=== PATIENT | female | born 1945 | race Caucasian/White ===

== ENCOUNTER 2020-02-13 19:07 | Emergency (ER) | payer OTHER ==
[2020-02-13] MEDS ORDERED: MORPHINE 4 MG/ML SYR ONE (20:17)
[2020-02-13] MEDS ORDERED: ONDANSETRON 4 MG/2 ML VIAL ONE (20:17)
[2020-02-13 20:22] LABS: Absolute Lymphocytes (CBC) 2.2 K/uL (0.7-4.9); Basophils % 0.5 % (0-1.3); Hematocrit 42.6 % (36.0-45.0); Lymphocytes % 31.3 % (15.3-44.8); MPV 9.5 fL (7.6-11.3); RBC Red Blood Cell Count 4.61 M/uL (3.86-4.86)
[2020-02-13 20:37] LABS: Albumin 3.8 g/dL (3.4-5.0); Bilirubin Direct 0.2 mg/dL (0-0.2); Bilirubin Total 0.7 mg/dL (0.2-1.0); Protein, Total 7.2 g/dL (6.4-8.2)
--- NOTE | 2020-02-13 22:08 | RAD REPORT ---
EXAM DESCRIPTION: RAD - Abdomen 1 View (KUB) - 02/13/2020 9:10 pm CLINICAL HISTORY: Abdomen pain. FINDINGS: The bowel gas pattern is unremarkable. There appears to be a large amount of stool presen t throughout the colon Postsurgical changes involve the lumbar spine.
--- NOTE | 2020-02-14 01:00 | ER ---
Nurse's Notes [facility] Name: Kenisha Tiwari Age: 74 yrs Sex: Female : 1945 Arrival Date: 02/13/2020 Time: 19:09 Bed 4 Private MD: Diagnosis: Abdominal tenderness, unspecified site;Low back pain Presentation: 02/12 19:21 Chief complaint: Patient states: left sided back pain, denies injury or trauma, also sg reprots last BM four days ago and is now having abd pain and nausea. Coronavirus screen: Proceed with normal triage. Ebola Screen: Patient negative for fever greater than or equal to 101.5 degrees Fahrenheit, and additional compatible Ebola Virus Disease symptoms Patient denies exposure to infectious person. Patient denies travel to an Ebola-affected area in the 21 days before illness onset. No symptoms or risks identified at this time. Initial Sepsis Screen: Does the patient meet any 2 criteria? No. Patient's initial sepsis screen is negative. Does the patient have a suspected source of infection? Yes: Acute abdominal pain. Risk Assessment: Do you want to hurt yourself or someone else? Patient reports no desire to harm self or others. Onset of symptoms was February 13, 2020. Care prior to arrival: None. Transition of care: patient was not received from another setting of care. 19:21 Method Of Arrival: Wheelchair 19:21 Acuity: NINI 3 sg Historical: - Allergies: 19:23 No Known Allergies; sg - PMHx: 19:23 Hypertension; sg - Immunization history:: Adult Immunizations up to date. - Social history:: Smoking status: Patient denies any tobacco usage or history of. Screenin:33 Abuse screen: Denies threats or abuse. Denies injuries from another. Nutritional ao screening: No deficits noted. Tuberculosis screening: No symptoms or risk factors identified. Fall Risk None identified. Assessment: 19:31 General: Appears in no apparent distress. comfortable, well groomed, well developed, ao well nourished, Behavior is calm, cooperative, appropriate for age. Pain: Complains of pain in back and abdomen Pain currently is 6 out of 10 on a pain scale. Neuro: Level of Consciousness is awake, alert, obeys commands, Oriented to person, place, time, situation, Appropriate for age Moves all extremities. Full function Speech is normal, Facial symmetry appears normal. Cardiovascular: Capillary refill < 3 seconds Patient's skin is warm and dry. Respiratory: Airway is patent Respiratory effort is even, unlabored, Respiratory pattern is regular, symmetrical. GI: Abdomen is non-distended. : No signs and/or symptoms were reported regarding the genitourinary system. EENT: No signs and/or symptoms were reported regarding the EENT system. Derm: Skin is intact, is healthy with good turgor, Skin is dry, Skin temperature is warm. Musculoskeletal: Range of motion: intact in all extremities. 21:23 Reassessment: Patient appears in no apparent distress at this time. CT to be done after ao proper IV is done. 22:46 Reassessment: Patient and/or family updated on plan of care and expected duration. Pain ea level reassessed. Patient is alert, oriented x 3, equal unlabored respirations, skin warm/dry/pink. 02/13 00:08 Reassessment: Patient appears in no apparent distress at this time. Patient and/or ea family updated on plan of care and expected duration. Pain level reassessed. 01:20 Reassessment: Patient requested a pain pill. Dr Steinberg notified. Received a verbal ao order from Dr Steinberg to give tramadol 50mg PO. See MAR for Documentation. 01:36 Reassessment: DC instructions given to patient. Patient agree with POC and to follow ao up. Provided with 3 prescription. Reassessment: Patient waiting for family member to get her home. Vital Signs: 02/12 19:23 BP 193 / 98; Pulse 67; Resp 14; Temp 98.5; Pulse Ox 97% ; Weight 81.65 kg; Height 5 ft. ao 3 in. (160.02 cm); 21:10 BP 162 / 74; Pulse 66; Resp 14; Pulse Ox 97% ; ao 22:47 BP 146 / 75; Pulse 60; Resp 18; Pulse Ox 98% on R/A; ea 02/13 00:08 BP 137 / 79; Pulse 70; Resp 18; Pulse Ox 94% on R/A; ea 01:37 BP 128 / 80; Pulse 66; Resp 18; Pulse Ox 94% on R/A; ao 02/12 19:23 Body Mass Index 31.89 (81.65 kg, 160.02 cm) ao ED Course: 02/12 19:09 Patient arrived in ED. ds1 19:17 Cody Steinberg MD is Attending Physician. tw4 19:22 Triage completed. sg 19:22 Arm band placed on. sg 19:31 Cedric Marcial, RN is Primary Nurse. ao 19:33 Patient has correct armband on for positive identification. cmm inspector on. Pulse ao ox on. NIBP on. 19:43 Missed attempt(s): 20 gauge in right wrist. Bleeding controlled, band aid applied, sg catheter tip intact. 19:51 Inserted saline lock: 22 gauge in right hand, using aseptic technique. ao 20:06 Abdomen 1 View (KUB) XRAY In Process Unspecified. EDMS 21:05 Missed attempt(s): 22 gauge in left antecubital area. Bleeding controlled, band aid ea applied, catheter tip intact. 21:10 Missed attempt(s): 24 gauge in right antecubital area. Bleeding controlled, band aid ea applied, catheter tip intact. 22:00 Inserted MidLine PowerGlide Pro, 20 G 10 CM to the LUE. sg 22:23 CT Abd/Pelvis - IV Contrast Only In Process Unspecified. EDMS 02/13 00:26 Straight cath inserted, using sterile technique, 14 Fr. Specimen obtained. ea 01:35 No provider procedures requiring assistance completed. IV discontinued, intact, ao bleeding controlled, No redness/swelling at site. Pressure dressing applied. Administered Medications: 02/12 20:12 Drug: Zofran (Ondansetron) 4 mg Route: IVP; Site: left hand; ea 21:00 Follow up: Response: No adverse reaction ea 20:13 Drug: morphine 4 mg Route: IVP; Site: left hand; ea 21:00 Follow up: Response: No adverse reaction ea 02/13 01:10 Drug: traMADol 50 mg {Note: Rass 0.} Route: PO; ao 01:38 Follow up: Response: No adverse reaction; RASS: Alert and Calm (0) ao Outcome: 00:59 Discharge ordered by . tw4 01:35 Discharged to home via wheelchair. ao 01:35 Condition: stable 01:35 Discharge instructions given to patient, Instructed on discharge instructions, follow up and referral plans. Demonstrated understanding of instructions, follow-up care, medications, Prescriptions given X 3. 02:06 Patient left the ED. ea Addendum: 02/19/2020 07:40 Addendum: Culture Results: Positive urine culture. No further action required. Bacteria s g sensitive to prescribed antibiotic. Signatures: Dispatcher [employer] Sim Koroma, RN Kathy Carson ds1 Cedric Marcial RN Julieta Stevenson RN Cody Jean Baptiste ea, MD MD tw4
--- NOTE | 2020-02-14 01:00 | EDPHYS ---
Physician Documentation [facility] Name: Kenisha Tiwari Age: 74 yrs Sex: Female : 1945 Arrival Date: 02/13/2020 Time: 19:09 Bed 4 Private MD: ED Physician Cody Steinberg HPI: 02/12 20:54 This 74 yrs old Female presents to ER via Wheelchair with complaints of Back tw4 Pain, Abdominal Pain. 20:54 The patient presents with pain that is acute, with no known mechanism of injury. The tw4 symptoms are located in the low back. Onset: The symptoms/episode began/occurred 4 day(s) ago. The pain does not radiate. Associated signs and symptoms: The patient has no apparent associated signs or symptoms. The problem was sustained without known cause. Modifying factors: The patient symptoms are alleviated by nothing, the patient symptoms are aggravated by nothing. Historical: - Allergies: 19:23 No Known Allergies; sg - PMHx: 19:23 Hypertension; sg - Immunization history:: Adult Immunizations up to date. - Social history:: Smoking status: Patient denies any tobacco usage or history of. ROS: 20:54 Constitutional: Negative for fever, chills, and weight loss, Eyes: Negative for injury, tw4 pain, redness, and discharge, Cardiovascular: Negative for chest pain, palpitations, and edema, Respiratory: Negative for shortness of breath, cough, wheezing, and pleuritic chest pain. 20:54 MS/Extremity: Negative for injury and deformity, Skin: Negative for injury, rash, and discoloration, Neuro: Negative for headache, weakness, numbness, tingling, and seizure. 20:54 Abdomen/GI: Positive for abdominal pain, Negative for nausea and vomiting, nausea, vomiting, and diarrhea, nausea, constipation, abdominal cramps, abdominal distension, black/tarry stool, rectal pain, rectal bleeding, bowel incontinence. 20:54 Back: Positive for pain at rest, Negative for injury or acute deformity, radiated pain, acute changes. Exam: 20:54 Constitutional: This is a well developed, well nourished patient who is awake, alert, tw4 and in no acute distress. Head/Face: Normocephalic, atraumatic. Chest/axilla: Normal chest wall appearance and motion. Nontender with no deformity. No lesions are appreciated. Cardiovascular: Regular rate and rhythm with a normal S1 and S2. No gallops, murmurs, or rubs. Normal PMI, no JVD. No pulse deficits. Respiratory: Lungs have equal breath sounds bilaterally, clear to auscultation and percussion. No rales, rhonchi or wheezes noted. No increased work of breathing, no retractions or nasal flaring. 20:54 Skin: Warm, dry with normal turgor. Normal color with no rashes, no lesions, and no evidence of cellulitis. MS/ Extremity: Pulses equal, no cyanosis. Neurovascular intact. Full, normal range of motion. Neuro: Awake and alert, GCS 15, oriented to person, place, time, and situation. Cranial nerves II-XII grossly intact. Motor strength 5/5 in all extremities. Sensory grossly intact. Cerebellar exam normal. Normal gait. 20:54 Abdomen/GI: Inspection: abdomen appears normal, Bowel sounds: diminished, Palpation: moderate abdominal tenderness, in all quadrants. Vital Signs: 19:23 BP 193 / 98; Pulse 67; Resp 14; Temp 98.5; Pulse Ox 97% ; Weight 81.65 kg; Height 5 ft. ao 3 in. (160.02 cm); 21:10 BP 162 / 74; Pulse 66; Resp 14; Pulse Ox 97% ; ao 22:47 BP 146 / 75; Pulse 60; Resp 18; Pulse Ox 98% on R/A; ea 02/13 00:08 BP 137 / 79; Pulse 70; Resp 18; Pulse Ox 94% on R/A; ea 01:37 BP 128 / 80; Pulse 66; Resp 18; Pulse Ox 94% on R/A; ao 02/12 19:23 Body Mass Index 31.89 (81.65 kg, 160.02 cm) ao MDM: 02/12 19:17 Patient medically screened. tw4 02/13 00:56 Data reviewed: vital signs, nurses notes. Data interpreted: Pulse oximetry: tw4 Interpretation: normal. Counseling: I had a detailed discussion with the patient and/or guardian regarding: the historical points, exam findings, and any diagnostic results supporting the discharge/admit diagnosis, lab results, radiology results. Medication response: morphine relieved the patient's pain. Symptoms have resolved. Response to treatment: and as a result, I will discharge patient. Special discussion: Based on the patient's Hx, exam, and Dx evaluation, there is no indication for emergent surgery or inpatient Tx. It is understood by the patient/guardian that if the Sx's persist or worsen they need to return immediately for re-evaluation. I discussed with the patient/guardian in detail that at this point there is no indication for admission to the hospital. It is understood, however, that if the symptoms persist or worsen the patient needs to return immediately for re-evaluation. 02/12 19:22 Order name: Basic Metabolic Panel; Complete Time: 20:57 [facility] 02/12 20:59 Interpretation: Normal except: CL 108; GFR 83. 02/12 19:22 Order name: CBC with Diff; Complete Time: 20:57 [facility] 02/12 20:59 Interpretation: Within normal limits. 02/12 19:22 Order name: Hepatic Function; Complete Time: 20:57 [facility] 02/12 21:01 Interpretation: Within normal limits. 02/12 19:22 Order name: Lipase; Complete Time: 20:57 [facility] 02/12 21:01 Interpretation: Within normal limits: LIP 147. 02/13 00:27 Order name: Urine Microscopic Only; Complete Time: 01:30 ea 02/13 01:30 Interpretation: UBACT 20-50. 02/13 01:07 Order name: Urine Dipstick--Ancillary (enter results) tt3 02/12 19:22 Order name: IV Saline Lock; Complete Time: 19:52 [facility] 02/12 19:22 Order name: Abdomen 1 View (KUB) XRAY; Complete Time: 23:54 [facility] 02/12 20:03 Order name: CT Abd/Pelvis - IV Contrast Only [facility] 02/12 22:47 Order name: EKG; Complete Time: 22:48 ea 02/13 01:17 Order name: Urine Culture [facility] 02/12 19:22 Order name: Labs collected and sent; Complete Time: 19:52 [facility] 02/12 19:22 Order name: Urine Dipstick-Ancillary (obtain specimen); Complete Time: 00:25 [facility] 02/12 22:48 Order name: EKG - Nurse/Tech; Complete Time: 00:01 ea EC:20 Rate is 66 beats/min. Rhythm is regular. QRS [place] is Normal. ME interval is normal. QT tw4 interval is normal. No Q waves. T waves are Normal. No ST changes noted. Clinical impression: Normal ECG. Interpreted by me. Reviewed by me. Administered Medications: 02/12 20:12 Drug: Zofran (Ondansetron) 4 mg Route: IVP; Site: left hand; ea 21:00 Follow up: Response: No adverse reaction ea 20:13 Drug: morphine 4 mg Route: IVP; Site: left hand; ea 21:00 Follow up: Response: No adverse reaction ea 02/13 01:10 Drug: traMADol 50 mg {Note: Rass 0.} Route: PO; ao 01:38 Follow up: Response: No adverse reaction; RASS: Alert and Calm (0) ao Disposition: 02/14/20 00:59 Discharged to Home. Impression: Abdominal tenderness, unspecified site, Low back pain. - Condition is Stable. - Discharge Instructions: Abdominal Pain, Adult, Back Pain, Adult, Pain Without a Known Cause, Urinary Tract Infection, Adult. - Prescriptions for Cyclobenzaprine 10 mg Oral Tablet - take 1 tablet by ORAL route every 8 hours As needed; 30 tablet. Tramadol 50 mg Oral Tablet - take 1 tablet by ORAL route every 8 hours as needed; 12 tablet. Macrobid 100 mg Oral Capsule - take 1 capsule by ORAL route every 12 hours for 7 days; 14 capsule. - Medication Reconciliation Form, Thank You Letter, Antibiotic Education, Prescription Opioid Use form. - Follow up: Private Physician; When: Upon discharge from the Emergency Department; Reason: Recheck today's complaints, Continuance of care, Re-evaluation by your physician. - Problem is new. - Symptoms have improved. Signatures: Dispatcher [employer] EDMS Sim Chun RN RN sg Ortiz, Alex RN Julieta Stevenson RN Cody Jean Baptiste ea, MD MD tw4 Corrections: (The following items were deleted from the chart) 02:06 00:59 02/14/2020 00:59 Discharged to Home. Impression: Abdominal tenderness, ea unspecified site; Low back pain. Condition is Stable. Forms are Medication Reconciliation Form, Thank You Letter, Antibiotic Education, Prescription Opioid Use. Follow up: Private Physician; When: Upon discharge from the Emergency Department; Reason: Recheck today's complaints, Continuance of care, Re-evaluation by your physician. Problem is new. Symptoms have improved. tw4
[2020-02-14 01:16] LABS: Urine Blood NEGATIVE (NEG); Urine Glucose NEGATIVE (NEG); Urine Protein NEGATIVE (NEG)
[2020-02-14 01:16] LABS: Urine Bacteria 20-50 /HPF (<20); Urine Culture Reflex Order REFLEXED; Urine RBC NONE SEEN /HPF (NONE SEEN)
[2020-02-14] MEDS ORDERED: TRAMADOL HCL 50 MG TAB ONE (01:28)
--- OUTSIDE RECORDS SUMMARY | 2020-02-14 02:17 | XMS REPORT | Continuity of Care Document ---
:1945 Author Organization [facility] t Address [address] [place] [address] Care Team Providers Name Role Phone Asked, Pcp Primary Care Physician Unavailable Chris Mckeon MD Attending Clinician Problems Condition Condition Condition Status Onset Resolution Last Treating Co mments Source Name Details Category Date Date Treatment Clinician Date Acute Acute Disease Active [facility] bronchitis bronchitis 09-10 Assessmen Methodi 00:00: t & Plan: st 00 History and clinical findings consisten t with acute bronchiti s. Discussed possible etiologie s however given chronicit y antibioti c therapy preferred .Azithrom ycin 250 mg by mouth in a Z-Jay prescribe dRescue inhaler prescribe [place] precautio ns givenFoll ow-up in clinic in 5 to 7 days if symptoms do not improve Viral Viral Disease Active [place] conjunctiv conjunctiv 2 Dc thodi itis of itis of 00:00: st left eye left eye 00 Bilateral Bilateral Disease Active Last Rosa Isela ston impacted impacted 09-10 Assessmen Met hodi cerumen cerumen 00:00: t & Plan: st 00 Ear cerumen removal by ear irrigatio n b/l. Resolved. 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-12 Meth danyelle loss loss 00:00: st 00 Need for Need for Disease Active [place] pneumococc pneumococc 08-20 Me thodi al al 00:00: st vaccinatio vaccinatio 00 n n Abnormal Abnormal Disease Active [place] liver liver 08-20 Methodi function function 00:00: st test test 00 Acquired Acquired Disease Active [place] hypothyroi hypothyroi -12 Me thodi dism dism 00:00: st 00 Osteopenia Osteopenia Disease Active 2015-08 Overview : [place] determined determined 10-05 -2.1 [facility] by x-ray by x-ray 00:00: T-score 00 of Femoral neck Breast Breast Disease Active 2015-08 [place] cancer cancer 10-05 Methodi screening screening 00:00: st 00 GERD GERD Disease Active 2015-08 Last [place] (gastroeso (gastroeso 10-05 Assessmen Methodi phageal phageal 00:00: t & Plan: st reflux reflux 00 History disease) disease) and clinical findings suggestiv e of persisten t GERD symptoms. Added antacid to PPI regimen.C yarelinseled her on dietary intervent jordenwirhoda review previous endoscopy records once available Follow-up in office if condition does not improve and possible referral to GI for further evaluatio n Hyperlipid Hyperlipid Disease Active 2015-08 H marie castrejon, 10-05 Methodi mixed mixed 00:00: st 00 Obesity Obesity Disease Active 2015-08 [place] 10-05 Methodi 00:00: st 00 Allergies, Adverse Reactions, Alerts This patient has no known allergies or adverse reactions. Family History Family Member Diagnosis Comments Start Date Stop Date Source Natural father Stroke [facility] Natural mother Hypertension [facility] Natural sister Cancer [facility] Social History Social Habit Start Date Stop Date Quantity Comments Source Sex Assigned [facility] ethodist Alcohol intake 2016-09-10 2016-09-10 [facility]00 non-drinker of alcohol (finding) Smoking Status Start Date Stop Date Source [facility] Ordered Filled Start Stop Current Ordering Indication Dosage Frequency Signature Comments Components Source Medication Medication Date Date Medication? Clinician (SIG) Name Name esomeprazol Yes 40mg QD Take 40 mg [place] e (NexIUM) 09-10 by mouth Metho di 40 MG 14:02: daily st capsule 55 before breakfast. cholecalcif Yes 1000U QD Take 1,000 [place] pranav, 09-10 Units by Methodi vitamin D3, 14:02: mouth st (VITAMIN 55 daily. D3) 1,000 unit capsule CALCIUM 2017-0 Yes Take by [place] CARBONATE 2-02 mouth. Methodi (CALCIUM 14:02: st 600 ORAL) 55 aspirin Yes 81mg QD Take 81 mg [place] (ECOTRIN) 2-02 by mouth Method i 81 MG 14:02: daily. st enteric 55 coated tablet alum-mag 2015-08 Yes Gastroesoph 30mL Q.25D Take 30 mL Lim hydroxide-s 2-27 ageal by mouth 4 M ethodi imeth 00:00: reflux (four) st (MAALOX) 00 disease, times a 200-200-20 esophagitis day before mg/5 mL presence meals and suspension not nightly. specified ibuprofen 2015-08 Yes TK 1 T PO Rosa Isela fagan (ADVIL,MOTR 1-23 Q 8 H PRN Met hodi IN) 600 MG 00:00: st tablet 00 Immunizations Ordered Immunization Filled Immunization Date Status Commen ts Source Name Name Pneumococcal 2016-08-20 Completed Lim Conjugate 13-Valent 00:00:00 Metho dist FLUZONE HIGH-DOSE PF 2016-07-21 Completed Mitzy ton 00:00:00 [facility] Tdap 2010-08-23 Completed Lim 00:00:00 [facility] Procedures This patient has no known procedures. Plan of Care Planned Activity Planned Date Details Comments Source Future Scheduled 2025-03-09 COLONOSCOPY SCREENING Ho aidan [facility] Test 00:00:00 [code = COLONOSCOPY SCREENING] Future Scheduled 2020-03-09 INFLUENZA VACCINE Jose n [facility] Test 00:00:00 [code = INFLUENZA VACCINE] Future Scheduled 2018-09-02 DXA SCAN [code = DXA Rosa Isela fagan [facility] Test 00:00:00 SCAN] Future Scheduled 2017-08-20 65+ PNEUMOCOCCAL [place] [facility] Test 00:00:00 VACCINE (2 of 2 - PPSV23) [code = 65+ PNEUMOCOCCAL VACCINE (2 of 2 - PPSV23)] Future Scheduled 2017-04-19 BREAST CANCER Lim Me thodist Test 00:00:00 SCREENING [code = BREAST CANCER SCREENING] Future Scheduled 1994 SHINGLES VACCINES (#1) H cherelle [facility] Test 00:00:00 [code = SHINGLES VACCINES (#1)] Encounters Start End Encounter Admission Attending Care Care Encounter Source Date/Time Date/Time Type Type Clinicians Facility Department ID 2019-12-13 2019-12-13 TelemedicMELISSA Hernandez [id number] 12:59:41 13:14:41 ne Visit Mart Luciano [id number] Edward [facility] [id number] Professio [phone] [address] 2019-12-13 2019-12-13 [facility] [id number] 00:00:00 00:00:00 [facility] [id number] [place] [id number] Professio [phone] [address] 2019-11-13 2019-11-13 [facility] [id number] 00:00:00 00:00:00 [facility] [id number] [facility] [place] [id number] Professio [phone] [address] 2019-11-10 2019-11-10 [facility] [id number] 07:22:02 08:02:02 ne Visit Mart Luciano [id number] Edward [place] [id number] Professio [phone] [address] 2019-11-01 2019-11-01 [facility] [id number] 08:13:49 08:28:49 ne Visit Mart Wells [id number] [place] [id number] Professio [phone] [address] 2019-10-30 2019-10-30 [facility] [id number] 00:00:00 00:00:00 [facility] [id number] [place] [id number] Professio [id number] [address] 2019-10-25 2019-10-25 [facility] [id number] 00:00:00 00:00:00 [facility] [id number] [place] [id number] Professio [phone] [address] 2019-09-27 2019-09-27 Office [facility] [id number] 09:21:11 10:00:34 Visit [facility] [id number] Edward [place] [id number] Professio [phone] nal [address] 2019-09-27 2019-09-27 Refill [facility] [id number] 00:00:00 00:00:00 [facility] [id number] [facility] [place] [id number] Professio [phone] [place] [address] [address] Results This patient has no known results.
--- OUTSIDE RECORDS SUMMARY | 2020-02-14 02:17 | XMS REPORT | Summary of Care ---
:1945 Author Organization [facility] Address [address] [place] [address] Care Team Providers Name Role Phone Mart Mckeon MD Primary Care Provider [phone] Reason for Visit Reason Comments Assessment Encounter Details Date Type Department Care Team Description 12/13/2019 Telephone [facility] Family Medicine Mart Acharya MD Assessment - [address] [address] [place] [address] [phone] Allergies No Known Allergiesdocumented as of this encounter (statuses as of 12/13/2019) Medications Medication Sig Dispensed Refills Start Date End Date Status atorvastatin 40 mg Take 40 mg by 0 Active tablet mouth at bedtime. losartan 100 mg tablet Take 100 mg by 0 Active mouth daily. pantoprazole 40 mg EC Take 40 mg by 0 Active tablet mouth daily. alendronate 70 mg Take 1 tablet by 4 tablet 12 09/27/2019 Active tabletIndications: mouth weekly. Age-related osteoporosis without current pathological fracture famotidine 20 mg Take 1 tablet by 30 tablet 12 09/27/2019 Active tabletIndications: mouth at Gastroesophageal reflux bedtime. disease with esophagitis LEVOTHYROXINE 112 mcg TAKE 1 TABLET BY 270 tablet 1 10/31/2019 Active tabletIndications: MOUTH EVERY DAY Acquired hypothyroidism IN THE MORNING traMADol 50 mg Take 1 tablet by 50 tablet 0 11/10/2019 Active tabletIndications: Acute mouth every 6 midline low back pain (six) hours as without sciatica needed (back pain). methylPREDNISolone Take 21 tablets 21 Each 0 11/13/2019 Active (MEDROL, CELIA,) 4 mg by mouth tabletsIndications: SEE-INSTRUCTIONS Acute midline low back . follow package pain without sciatica directions documented as of this encounter (statuses as of 12/13/2019) Active Problems Not on filedocumented as of this encounter (statuses as of 12/13/2019) Social History Tobacco Use Types Packs/Day Years Used Date Never Smoker Smokeless Tobacco: Never Used Alcohol Use Drinks/Week oz/Week Comments Never Alcohol Habits Answer Date Recorded How often do you have a drink containing alcohol? Never 09/27/2019 How many drinks containing alcohol do you have on a typical Not asked day when you are drinking? How often do you have six or more drinks on one occasion? No t asked Sex Assigned at Date Recorded Not on file Job Start Date Occupation Industry Not on file Not on file Not on file Travel History Travel Start Travel End No recent travel history available. documented as of this encounter Last Filed Vital Signs Not on filedocumented in this encounter Plan of Treatment Date Type Specialty Care Team Description 12/13/2019 Telemedicine Visit Family Medicine Bryan Mckeon MD [address] [place] [address] [phone] Health Maintenance Due Date Last Done Comments HEPATITIS C (HCV) SCREEN 1945 DTaP,Tdap,and Td Vaccines (1 - Tdap) 11/27/1955 Breast Cancer Screening (MAMMOGRAM) 1984 COLONOSCOPY 1994 Zoster Recombinant Vaccine (SHINGRIX) (1 of 2) 1994 Medicare Wellness Visit 2009 Osteoporosis Screening 2009 PNEUMOCOCCAL VACCINES 65+ (1 of 2 - PCV13) 2009 INFLUENZA VACCINE (Season Ended) 2020 documented as of this encounter Results Not on filedocumented in this encounter Insurance Payer Benefit Plan / Subscriber ID Effective Phone Address T ype Group Dates MEDICARE MEDICARE PART A xxxxxxxxxxx 2009-Pres [phone] [address] Medicare & B ent [id number] [place] [address] [facility] [id number] 2019-Pre Indemnity AND LIFE BENEFITS sent documented as of this encounter
--- OUTSIDE RECORDS SUMMARY | 2020-02-14 02:17 | XMS REPORT | Clinical Summary ---
:1945 Author Organization [facility] Address [address] [place] [address] Care Team Providers Name Role Phone Asked, Pcp Primary Care Provider Unavailable Allergies No Known Allergies Medications Medication Sig Dispensed Refills Start Date End Date Status ibuprofen (ADVIL,MOTRIN) TK 1 T PO Q 8 H 0 6 Active 600 MG tablet PRN esomeprazole (NexIUM) 40 Take 40 mg by 0 Active MG capsule mouth daily before breakfast. cholecalciferol, vitamin Take 1,000 0 Active D3, (VITAMIN D3) 1,000 Units by mouth unit capsule daily. CALCIUM CARBONATE Take by mouth. 0 Active (CALCIUM 600 ORAL) aspirin (ECOTRIN) 81 MG Take 81 mg by 0 Active enteric coated tablet mouth daily. alum-mag hydroxide-simeth Take 30 mL by 148 mL 2 08/04/2016 Active (MAALOX) 200-200-20 mg/5 mouth 4 (four) mL suspensionIndications: times a day Gastroesophageal reflux before meals disease, esophagitis and nightly. presence not specified Active Problems Problem Noted Date Acute bronchitis 09/10/2016 Last Assessment & Plan: History and clinical findings consistent with acute bronchitis. Discussed possible etiologies however given chronicity antibiotic therapy preferred. Azithromycin 250 mg by mouth in a Z-Jay prescribed Rescue inhaler prescribed ER precautions given Follow-up in clinic in 5 to 7 days if sy mptoms do not improve Viral conjunctivitis of left eye 09/10/2016 Bilateral impacted cerumen 09/10/2016 Last Assessment & Plan: Ear cerumen removal by ear irrigation b/ l. Resolved. Postmenopausal bone loss 08/20/2016 Need for pneumococcal vaccination 08/20/2016 Abnormal liver function test 08/20/2016 Acquired hypothyroidism 08/20/2016 Osteopenia determined by x-ray 08/04/2016 Overview: -2.1 T-score of Femoral neck Breast cancer screening 08/04/2016 GERD (gastroesophageal reflux disease) 08/04/2016 Last Assessment & Plan: History and clinical findings suggestive of persistent GERD symptoms. Added antacid to PPI regimen. Counseled her on dietary intervention will review previous endoscopy records o nce available Follow-up in office if condition does no t improve and possible referral to GI for further evaluation Hyperlipidemia, mixed 08/04/2016 Obesity 08/04/2016 Immunizations Name Administration Dates Next Due FLUZONE HIGH-DOSE PF 07/21/2016 Pneumococcal Conjugate 13-Valent 08/20/2016 Tdap 08/23/2010 Family History Medical History Relation Name Comments Stroke Father Hypertension Mother Cancer Sister Cancer Sister Relation Name Status Comments Father Mother Sister BREAST Sister BREAST Social History Tobacco Use Types Packs/Day Years Used Date Never Smoker Smokeless Tobacco: Never Used Alcohol Use Drinks/Week oz/Week Comments No Sex Assigned at Date Recorded Not on file Job Start Date Occupation Industry Not on file Not on file Not on file Travel History Travel Start Travel End No recent travel history available. Last Filed Vital Signs Not on file Plan of Treatment Health Maintenance Due Date Last Done Comments SHINGLES VACCINES (#1) 1994 BREAST CANCER SCREENING 04/19/2017 04/19/2015 65+ PNEUMOCOCCAL VACCINE (2 of 2 - 08/20/2017 08/20/2016 PPSV23) DXA SCAN 09/02/2018 09/02/2016, 09/02/2016 INFLUENZA VACCINE 03/09/2020 06/14/2017, 06/14/2017, 07/21/2016 COLONOSCOPY SCREENING 03/09/2025 03/09/2015 Results Not on fileafter 02/12/2019 Insurance Payer Benefit Plan / Subscriber ID Effective Dates Phone Addre ss Type Group MEDICARE MEDICARE PART A xxxxxxxxxxx 2009-Present [facility] [place] [facility] B Advance Directives For more information, please contact: [phone] Type Date Recorded Patient Primary Care Nurse Practitioner Explanati on Advance Directives, 07/01/2016 8:34 AM Living Will and Medical Power of Core Sucker
--- OUTSIDE RECORDS SUMMARY | 2020-02-14 02:17 | XMS REPORT | Summary of Care ---
:1945 Author Organization [facility] Address [address] [place] [address] Care Team Providers Name Role Phone Mart Mckeon MD Primary Care Provider [phone] Reason for Visit Reason Comments Swallowing Problem Encounter Details Date Type Department Care Team Description 12/13/2019 Telemedicine Visit [facility] Mart Mckeon Gastrojodie sophageal reflux disease with esophagitis (Primary Dx); Pediatric and MD Chris Essential hypertension Adult Primary [address] [place], [place] , [address] [address] [place], [place] [phone] [address] Allergies No Known Allergiesdocumented as of this encounter (statuses as of 12/13/2019) Medications Medication Sig Dispensed Refills Start End Date Status Date atorvastatin 40 mg Take 40 mg by 0 Active tablet mouth at bedtime. losartan 100 mg tablet Take 100 mg by 0 Active mouth daily. pantoprazole 40 mg EC Take 40 mg by 0 Active tablet mouth daily. alendronate 70 mg Take 1 tablet 4 tablet 12 Active tabletIndications: by mouth 0 Age-related weekly. osteoporosis without current pathological fracture famotidine 20 mg Take 1 tablet 30 tablet 12 Active tabletIndications: by mouth at 0 Gastroesophageal bedtime. reflux disease with esophagitis LEVOTHYROXINE 112 mcg TAKE 1 TABLET 270 tablet 1 Active tabletIndications: BY MOUTH EVERY 0 Acquired DAY IN THE hypothyroidism MORNING traMADol 50 mg Take 1 tablet 50 tablet 0 A ctive tabletIndications: by mouth every 0 Acute midline low back 6 (six) hours pain without sciatica as needed (back pain). methylPREDNISolone Take 21 21 Each 0 12/13/19 D iscontinued (MEDROL, CELIA,) 4 mg tablets by 0 20 tabletsIndications: mouth Acute midline low back SEE-INSTRUCTIO pain without sciatica NS. follow package directions documented as of this encounter (statuses [...] Signs Not on filedocumented in this encounter Progress Notes Mart Mckeon MD - 12/13/2019 3:45 PM CDT TELEHEALTH NOTE Verbal consent obtained from Patient: Kenisha Tiwari for telehealth services provided below. Communication with patient was conducted via Telephone due to patient unable to obtain video call option. Location of Patient: Home Location of Provider: Office Date of Service: 12/13/2019 Chief Complaint: breathing and talking problems HPI: Patient continues to have issues swallowing and breathing; her GERD is a lot better with the addition of the famotidine. Past Medical History: Diagnosis Date Esophageal reflux Hyperlipidemia Hypertension Osteoporosis Thyroid disease No Known Allergies No family history on file. MEDICATIONS: Current Outpatient Medications Medication Sig Dispense Refill LEVOTHYROXINE 112 mcg tablet TAKE 1 TABLET BY MOUTH EVERY DAY IN THE MORNING 270 tablet 1 alendronate 70 mg tablet Take 1 tablet by mouth weekly. 4 tablet 12 famotidine 20 mg tablet Take 1 tablet by mouth at bedtime. 30 tablet 12 traMADol 50 mg tablet Take 1 tablet by mouth every 6 (six) hours as needed (back pain). 50 tablet 0 atorvastatin 40 mg tablet Take 40 mg by mouth at bedtime. losartan 100 mg tablet Take 100 mg by mouth daily. pantoprazole 40 mg EC tablet Take 40 mg by mouth daily. No current facility-administered medications for this visit. ROS Review of Systems TELEHEALTH EXAM Patient is alert and communicative on the phone with no distress noted. ASSESSMENT/ PLAN 1. Gastroesophageal reflux disease with esophagitis 2. Essential hypertension continue current regimen Follow up 1 month After visit summary (AVS ) documentation will be available through [facility] for this encounter. A total of 15 minutes was spent on the Telephone due to patient unable to obtain video call option with the patient. Mart Mckeon MD documented in this encounter Plan of Treatment Health Maintenance Due Date [...] Results Not on filedocumented in this encounter Visit Diagnoses Diagnosis Gastroesophageal reflux disease with eso phagitis - Primary Essential hypertension Unspecified essential hypertension documented in this encounter Insurance Payer Benefit Plan / Subscriber ID Effective Phone Address T ype Group Dates MEDICARE MEDICARE PART A xxxxxxxxxxx 2009-Pres [phone] [address] X Medicare & B ent [id number] [place] [address] [facility] [id number] 2019-Pre Indemnity AND LIFE BENEFITS sent documented as of this encounter
[2020-02-14 02:27] VITALS: TEMP 98.5
[2020-02-14 02:31] VITALS: O2SAT 94
[2020-02-14 02:32] VITALS: BP 128/80
--- NOTE | 2020-02-14 07:18 | EKG ---
Test Date: 2020-02-13 Test Time: 23:33:44 Aircraft Instrument Tester: OMAIRA MEASUREMENT RESULTS: Intervals: Rate: 66 PA: 162 QRSD: 76 QT: 406 QTc: 425 [place]: P: 63 PA: 162 QRS: -16 T: 54 INTERPRETIVE STATEMENTS: Normal sinus rhythm Normal ECG No previous ECG available for comparison Electronically Signed On 02-14-20 07:18:01 CDT by Mika Pepe
--- NOTE | 2020-02-14 08:27 | RAD REPORT ---
EXAM DESCRIPTION: CT - Abdomen Pelvis W Contrast - 02/14/2020 5:22 am CLINICAL HISTORY: ABD PAIN COMPARISON: None Available. TECHNIQUE: CT of the abdomen and pelvis performed following IV administration of iodinated contrast in the arterial and portal venous phase. FINDINGS: Lung Bases: Mild right basilar atelectasis. Bones: Levoconvex scoliosis of the lumbar spine. Posterior fixation at L3-S1. Degenerative facet arth ropathy and endplate spondylosis. Abdomen: Liver: The liver has normal size and decreased density. No intrahepatic biliary dilatation. Gallbladder: No calcified gallstones. Spleen, Pancreas, and Adrenal Glands: The spleen, pancreas, and adrenal glands are unremarkable. Kidneys: No hydronephrosis or obstructing calculus. Vasculature: Aortoiliac atherosclerosis. IVC is unremarkable. The portal vein is patent. The proxim al visceral and renal arteries are patent. Stomach: The stomach and duodenum have normal course. Other: No free intraperitoneal air. No free fluid or lymphadenopathy. Pelvis: Bladder: Urinary bladder is unremarkable. Bowel: No dilated loops of large or small bowel. Scattered diverticula of the colon. No pericolic i nflammatory change. Appendix: Normal appendix. Pelvis: Uterus is not enlarged. IMPRESSION: 1. No acute inflammatory or obstructive process identified. 2. Diverticulosis without evidence of acute diverticulitis. This exam was performed according to our departmental dose-optimization program, which includes autom ated exposure control, adjustment of the mA and/or kV according to patient size and/or use of iterati ve reconstruction technique. Electronically signed by: Maikol Sam 02/13/2020 10:36 PM CDT Due to temporary technical issues with the PACS/Fluency reporting system, reports are being signed by the in house radiologist without review as a courtesy to ensure prompt reporting. The interpreting r adiologist is fully responsible for the content of the report.
== END 2020-02-14 02:06 | disposition home or self-care (01) ==
LOC: ER 19:07
DX: R10.819 Abdominal tenderness, unspecified site (principal); I10 Essential (primary) hypertension
CPT/HCPCS: 93005; 87088; 85025; 87086; 80048; 36415; 80076; 87077; 87186; 83690; 74177; 74018; 51702; 96375; 96374; 99284; Q9967; J2405; 81003; 81015

== ENCOUNTER 2020-11-04 16:02 | Emergency (ER) | payer OTHER ==
--- OUTSIDE RECORDS SUMMARY | 2020-11-04 16:07 | XMS REPORT | Continuity of Care Document ---
:1945 Author Organization [facility] t Address [address] [place] [address] Care Team Providers Name Role Phone Chris Mckeon MD Attending Clinician Problems This patient has no known problems. Allergies, Adverse Reactions, Alerts This patient has no known allergies or adverse reactions. Medications This patient has no known medications. Procedures This patient has no known procedures. Encounters Start End Encounter Admission Attending Care Care Encounter Source Date/Time Date/Time Type Type Clinicians Facility Department ID 2020-11-01 2020-11-01 Office MELISSA Mckeon [id number] 13:16:19 14:07:37 Visit [facility] [id number] Chris Luciano [id number] Joshua [id number] nal [address] Results This patient has no known results.
[2020-11-04] MEDS ORDERED: NA CHLORIDE 0.9% 1,000 ML ONE (18:15)
[2020-11-04 19:01] LABS: Absolute Lymphocytes (CBC) 1.7 K/uL (0.7-4.9); Basophils % 0.6 % (0-1.3); Hematocrit 45.9 % (36.0-45.0); Lymphocytes % 27.3 % (15.3-44.8); MPV 10.5 fL (7.6-11.3); RBC Red Blood Cell Count 5.04 M/uL (3.86-4.86)
[2020-11-04 19:27] LABS: ALT/SGPT 25 U/L (12-78); Albumin 3.7 g/dL (3.4-5.0); Alkaline Phosphatase 86 U/L (45-117); BUN Blood Urea Nitrogen 11 mg/dL (7-18); Bicarbonate 26 mmol/L (21-32); Bilirubin Total 1.3 mg/dL (0.2-1.0); Glucose Level 78 mg/dL (74-106); Protein, Total 7.5 g/dL (6.4-8.2); Sodium Level 141 mmol/L (136-145)
[2020-11-04 19:28] LABS: AST/SGOT 19 U/L (15-37); Potassium 3.6 mmol/L (3.5-5.1)
--- NOTE | 2020-11-04 20:31 | EDPHYS ---
Physician Documentation [facility] Name: Kenisha Tiwari Age: 74 yrs Sex: Female : 1945 Arrival Date: 11/04/2020 Time: 16:05 Bed 7 Private MD: ED Physician Blanca Yu HPI: 11/04 17:52 This 74 yrs old Female presents to ER via Wheelchair with complaints of pm1 Difficulty Swallowing, Decreased Appetite, Weakness. 17:52 The patient presents with dysphagia, of both solids and liquids. Onset: The pm1 symptoms/episode began/occurred 1 year(s) ago. Severity of symptoms: in the emergency department the symptoms are actually worse. Modifying factors: Patient's oral intake status: limited fluid intake. Associated signs and symptoms: The patient has no apparent associated signs or symptoms. The patient has been recently seen by a physician: the patient's primary care provider, with similar presenting complaints, and was referred to a specialist, Referred to her GI for possible barium study. Had a barium swallow study test about 6-7 months ago. Patient had labs from PCP on Wednesday that were normal. He would like labs to check if the patient is dehydrated and treatment to get the patient to the next specialist if needed. Historical: - Allergies: 16:26 No Known Allergies; ca1 - PMHx: 16:26 Hypertension; Alzheimers; Dementia; Thyroid problem; ca1 - PSHx: 16:26 Back Surgeries; ca1 - Immunization history:: Flu vaccine is not up to date. - Social history:: Smoking status: Patient denies any tobacco usage or history of. ROS: 17:52 Constitutional: Negative for fever, chills, and weight loss. pm1 17:52 Neck: Negative for injury, pain, and swelling, Cardiovascular: Negative for chest pain, palpitations, and edema, Respiratory: Negative for shortness of breath, cough, wheezing, and pleuritic chest pain, Abdomen/GI: Negative for abdominal pain, nausea, vomiting, diarrhea, and constipation. 17:52 MS/Extremity: Negative for injury and deformity, Skin: Negative for injury, rash, and discoloration. 17:52 ENT: Positive for difficulty swallowing, Negative for sore throat, difficulty handling secretions, hoarseness. 17:52 Back: Positive for chronic low back pain. Normally take tylenol for the pain but has been having difficulty with swallowing pills so has not been taking any medications for pain. 17:52 Neuro: Positive for generalized weakness. Exam: 17:52 Constitutional: This is a well developed, well nourished patient who is awake, alert, pm1 and in no acute distress. Head/Face: Normocephalic, atraumatic. 17:52 Back: No spinal tenderness. No costovertebral tenderness. Full range of motion. Skin: Warm, dry with normal turgor. Normal color with no rashes, no lesions, and no evidence of cellulitis. MS/ Extremity: Pulses equal, no cyanosis. Neurovascular intact. Full, normal range of motion. 17:52 ENT: Posterior pharynx: is normal, airway is patent, no erythema, no exudate, no peritonsilar mass, no pooling of secretions, no swelling. 17:52 Neck: Exam negative for acute changes, swelling, ROM/movement: is normal, is supple. 17:52 Cardiovascular: Exam negative for acute changes, Rate: normal, Rhythm: regular, Pulses: no pulse deficits are appreciated. 17:52 Respiratory: Exam negative for acute changes, respiratory distress, shortness of breath, Breath sounds: are clear throughout. 17:52 Neuro: Orientation: appropriate for stated age, Mentation: is normal, appropriate for stated age, Motor: is normal, moves all fours. Vital Signs: 16:20 BP 129 / 88; Pulse 86; Resp 18 S; Temp 97.8(TE); Pulse Ox 98% on R/A; Weight 62.6 kg ca1 (R); Height 5 ft. 4 in. (162.56 cm) (R); Pain 5/10; 18:00 BP 141 / 95; Pulse 79; Resp 16 S; Pulse Ox 97% on R/A; aa5 20:29 BP 149 / 89; Pulse 67; Resp 18; Pulse Ox 96% on R/A; ea 16:20 Body Mass Index 23.69 (62.60 kg, 162.56 cm) ca1 MDM: 17:17 Patient medically screened. pm1 20:28 Data reviewed: vital signs. Data interpreted: Pulse oximetry: on room air is 97 %. pm1 Interpretation: normal. Counseling: I had a detailed discussion with the patient and/or guardian regarding: the historical points, exam findings, and any diagnostic results supporting the discharge/admit diagnosis, lab results, the need for outpatient follow up, a drainage design coordinator, speech therapy for potential dysphagia treatment, General surgery for possible PEG placement , to return to the emergency department if symptoms worsen or persist or if there are any questions or concerns that arise at home. 20:32 ED course: Patient and son requested Lidoderm patch discussed as an alternative to pm1 Tylenol PO for her chronic back. Patient is having difficulty taking tylenol by mouth recently for her chronic back pain. 11/04 17:41 Order name: CBC with Diff; Complete Time: 19:36 pm1 11/04 17:41 Order name: CMP; Complete Time: 19:31 pm1 11/04 17:41 Order name: IV Saline Lock; Complete Time: 17:53 pm1 Administered Medications: 18:45 Drug: NS 0.9% 1000 ml Route: IV; Rate: 1000 ml; Site: left wrist; aa5 20:39 Follow up: Response: No adverse reaction; IV Status: Completed infusion; IV Intake: ea 1000ml 20:33 Drug: Lidoderm 5 % (700 mg/patch) 1 patches Route: Topical; Site: affected area; ea Disposition: 11/05 18:47 Co-signature as Attending Physician, Blanca Yu MD. ma2 Disposition: 11/04/20 20:30 Discharged to Home. Impression: Dysphagia, unspecified. - Condition is Stable. - Discharge Instructions: Dysphagia, Barium Swallow. - Prescriptions for Lidoderm 5 % Topical adhesive patch,medicated - apply 1 patch by TRANSDERMAL route once daily As needed 12 hours on and 12 hours off in a 24 hour period; 30 Transdermal Patch. - Medication Reconciliation Form, Thank You Letter, Antibiotic Education, Prescription Opioid Use form. - Follow up: Emergency Department; When: As needed; Reason: Worsening of condition. Follow up: Basilio Banda MD; When: 2 - 3 days; Reason: Recheck today's complaints, Continuance of care, Re-evaluation by your physician. - Problem is new. - Symptoms have improved. Signatures: Dispatcher [employer] EDMS Michelle Irene RN RN aa5 Lino [place], TRACK WALKER TRACK WALKER pm1 Julieta Broderick RN RN ea Alzahri, Mohammad, MD MD ms2 Acob, Yael, RN RN ca1 Corrections: (The following items were deleted from the chart) 11/04 21:18 20:30 11/04/2020 20:30 Discharged to Home. Impression: Dysphagia, unspecified. ea Condition is Stable. Forms are Medication Reconciliation Form, Thank You Letter, Antibiotic Education, Prescription Opioid Use. Follow up: Emergency Department; When: As needed; Reason: Worsening of condition. [facility]; When: 2 - 3 days; Reason: Recheck today's complaints, Continuance of care, Re-evaluation by your physician. Problem is new. Symptoms have improved. pm1
--- NOTE | 2020-11-04 20:31 | ER ---
Nurse's Notes [facility] Name: Kenisha Tiwari Age: 74 yrs Sex: Female : 1945 Arrival Date: 11/04/2020 Time: 16:05 Bed 7 Private MD: Diagnosis: Dysphagia, unspecified Presentation: 11/04 16:20 Chief complaint: Patient's son or daughter states: Son: She's been having trouble ca1 swallowing and talking for about a year now. She's diagnosed with Dementia and Alzheimer's. The difficulty swallowing and talking has been progressively worse that she seems to forget on how to swallow. It's been bad for a little over a week now. Been to her doctor and he suggested that we schedule a swallow test with her GI doctor. Last swallow test was 6-7 months ago. At night, she's been having difficulty breathing. Coronavirus screen: Client denies travel out of the [place] in the last 14 days. difficulty breathing, Client presents with at least one sign or symptom that may indicate coronavirus-19. Standard/surgical mask placed on the client. Provider contacted for isolation considerations. Ebola Screen: Patient negative for fever greater than or equal to 101.5 degrees Fahrenheit, and additional compatible Ebola Virus Disease symptoms Patient denies exposure to infectious person. Patient denies travel to an Ebola-affected area in the 21 days before illness onset. No symptoms or risks identified at this time. Initial Sepsis Screen: Does the patient meet any 2 criteria? No. Patient's initial sepsis screen is negative. Does the patient have a suspected source of infection? No. Patient's initial sepsis screen is negative. Risk Assessment: Do you want to hurt yourself or someone else? Patient reports no desire to harm self or others. Onset of symptoms was November 04, 2020. 16:20 Method Of Arrival: Wheelchair ca1 16:20 Acuity: NINI 2 ca1 Historical: - Allergies: 16:26 No Known Allergies; ca1 - PMHx: 16:26 Hypertension; Alzheimers; Dementia; Thyroid problem; ca1 - PSHx: 16:26 Back Surgeries; ca1 - Immunization history:: Flu vaccine is not up to date. - Social history:: Smoking status: Patient denies any tobacco usage or history of. Screenin:20 Abuse screen: No signs of abuse noted. Nutritional screening: No deficits noted. aa5 Tuberculosis screening: No symptoms or risk factors identified. Fall Risk Secondary diagnosis (15 points) Alzheimer's, dementia, IV access (20 points). Mental Status- Overestimates/Forgets Limitations (15 pts.). Total Conley Fall Scale indicates High Risk Score (45 or more points). Fall prevention measures have been instituted. Side Rails Up X 2 Placed Close to Nursing Station. Assessment: 17:20 General: Appears comfortable, Behavior is calm, cooperative. Pain: Denies pain. Neuro: aa5 Level of Consciousness is awake, alert, obeys commands, Oriented to person, place, time, situation, Fruit Thinner are equal bilaterally Moves all extremities. Speech is difficult to understand. Facial symmetry appears normal, Reports difficulty swallowing. Cardiovascular: Patient's skin is warm and dry. Respiratory: Airway is patent Respiratory effort is even, unlabored, Respiratory pattern is regular, symmetrical. GI: Reports unable to eat worse over the last week. : No signs and/or symptoms were reported regarding the genitourinary system. EENT: Reports difficulty swallowing. Derm: Skin is pink, warm \T\ dry. Musculoskeletal: Range of motion: intact in all extremities. 18:00 Reassessment: Pt is a hard stick, awaiting for clam bed laborer to draw blood . aa5 18:35 Reassessment: Labs drawn by clam bed laborer . aa5 18:35 Reassessment: Patient is alert, oriented x 3, equal unlabored respirations, skin aa5 warm/dry/pink. 20:29 General: Appears in no apparent distress. Behavior is calm, cooperative. Pain: Denies ea pain. Neuro: Level of Consciousness is awake, alert, obeys commands, Oriented to person, place, time. Cardiovascular: Patient's skin is warm and dry. Respiratory: Airway is patent Respiratory effort is even, unlabored, Respiratory pattern is regular, symmetrical. Derm: Skin is pink, warm \T\ dry. 21:17 Reassessment: Patient and/or family updated on plan of care and expected duration. Pain ea level reassessed. Patient is alert, oriented x 3, equal unlabored respirations, skin warm/dry/pink. Vital Signs: 16:20 BP 129 / 88; Pulse 86; Resp 18 S; Temp 97.8(TE); Pulse Ox 98% on R/A; Weight 62.6 kg ca1 (R); Height 5 ft. 4 in. (162.56 cm) (R); Pain 5/10; 18:00 BP 141 / 95; Pulse 79; Resp 16 S; Pulse Ox 97% on R/A; aa5 20:29 BP 149 / 89; Pulse 67; Resp 18; Pulse Ox 96% on R/A; ea 16:20 Body Mass Index 23.69 (62.60 kg, 162.56 cm) ca1 ED Course: 16:05 Patient arrived in ED. as 16:25 Triage completed. ca1 16:26 Arm band placed on right wrist. ca1 17:17 Lino Park NP is PHCP. pm1 17:17 Blanca Yu MD is Attending Physician. pm1 17:20 Patient has correct armband on for positive identification. Bed in low position. Call aa5 light in reach. Side rails up X2. Adult w/ patient. 17:40 Michelle Irene RN is Primary Nurse. aa5 17:53 Inserted saline lock: 22 gauge in left wrist, using aseptic technique. aa5 19:00 Report given to ABDULKADIR Rendon and ABDULKADIR Mccann. aa5 20:30 Basilio Banda MD is Referral Physician. pm1 20:39 No provider procedures requiring assistance completed. ea 21:18 IV discontinued, intact, bleeding controlled, No redness/swelling at site. Pressure ea dressing applied. Administered Medications: 18:45 Drug: NS 0.9% 1000 ml Route: IV; Rate: 1000 ml; Site: left wrist; aa5 20:39 Follow up: Response: No adverse reaction; IV Status: Completed infusion; IV Intake: ea 1000ml 20:33 Drug: Lidoderm 5 % (700 mg/patch) 1 patches Route: Topical; Site: affected area; ea Intake: 20:39 IV: 1000ml; Total: 1000ml. ea Outcome: 20:30 Discharge ordered by . pm1 21:17 Discharged to home ambulatory, with family. ea 21:17 Condition: stable 21:17 Discharge instructions given to patient, Instructed on discharge instructions, follow up and referral plans. medication usage, Demonstrated understanding of instructions, follow-up care, medications. 21:18 Patient left the ED. ea Signatures: Gregoria Galvan as Michelle Irene RN RN aa5 Lino Park NP JUNIOR ACCOUNTANT pm1 Julieta Broderick, RN RN ea Acosvaldo, Yael, RN RN ca1
[2020-11-04] MEDS ORDERED: LIDOCAINE 4% PATCH ONE (20:50)
[2020-11-04 22:44] VITALS: TEMP 97.8
[2020-11-04 22:46] VITALS: BP 149/89; O2SAT 96
== END 2020-11-04 21:18 | disposition home or self-care (01) ==
LOC: ER 16:02
DX: R13.10 Dysphagia, unspecified (principal); R53.1 Weakness; I10 Essential (primary) hypertension; G30.9 Alzheimer's disease, unspecified; F02.80 Dementia in other diseases classified elsewhere, unspecified severity, without behavioral disturbance, psychotic disturbance, mood disturbance, and anxiety
CPT/HCPCS: 85025; 36415; 80053; J7030; 96360; 96361; 99283

== ENCOUNTER 2020-11-13 10:23 | Inpatient (IN) | payer OTHER ==
--- OUTSIDE RECORDS SUMMARY | 2020-11-13 10:25 | XMS REPORT | Continuity of Care Document ---
:1945 Author Organization [facility] t Address [address] [place] [address] Care Team Providers Name Role Phone Chris [...] ID 2020-11-01 2020-11-01 Office MELISSA Mckeon [id number] 13:16:19 14:07:37 Visit [facility] [id number] Chris Luciano [id number] Joshua [phone] nal [address] Office [address] One Results This patient has no known results.
[2020-11-13 11:21] LABS: Absolute Lymphocytes (CBC) 0.7 K/uL (0.7-4.9); Basophils % 0.2 % (0-1.3); Hematocrit 46.1 % (36.0-45.0); Lymphocytes % 4.9 % (15.3-44.8); MPV 10.2 fL (7.6-11.3); RBC Red Blood Cell Count 5.02 M/uL (3.86-4.86)
[2020-11-13 11:44] LABS: BUN Blood Urea Nitrogen 10 mg/dL (7-18); Bicarbonate 30 mmol/L (21-32); Glucose Level 126 mg/dL (74-106); NT PRO-BNP 168 pg/mL (<450); Potassium 3.4 mmol/L (3.5-5.1); Sodium Level 140 mmol/L (136-145); Troponin (Emerg Dept Use Only) < 0.02 ng/mL (0.0-0.045)
[2020-11-13 12:22] LABS: Blood Morphology Comment NOT SEEN (NOT SEEN); Platelet Estimate ADEQ; White Blood Cell Scan OK (OK)
--- NOTE | 2020-11-13 12:22 | RAD REPORT ---
EXAM DESCRIPTION: Huma Single View11/13/2020 11:40 am CLINICAL HISTORY: Shortness breath COMPARISON: 2019 FINDINGS: Mild right basilar lung opacity. Right hemidiaphragm remains elevated. Left lung appears clear of acute infiltrate. Heart is normal size IMPRESSION: Mild right basilar opacity may represent pneumonia
[2020-11-13] MEDS ORDERED: NA CHLORIDE 0.9% 1,000 ML ONE (12:33)
--- NOTE | 2020-11-13 12:43 | ER ---
Nurse's Notes [facility] Name: Kenisha Tiwari Age: 74 yrs Sex: Female : 1945 Arrival Date: 11/13/2020 Time: 10:33 Bed 4 Private MD: Diagnosis: Pneumonia, unspecified organism;Hypoxemia;Dehydration Presentation: 11/13 10:34 Chief complaint: EMS states: "pt's family is reporting that the pt is having some jd3 shortness of breath this morning. she does not appear in distress, but has periods where she will look like she can't catch her breath with gasping. family also reported pt has not been eating or drinking well recently and is scheduled for a feeding tube soon.". Coronavirus screen: At this time, the client does not indicate any symptoms associated with coronavirus-19. Ebola Screen: Patient negative for fever greater than or equal to 101.5 degrees Fahrenheit, and additional compatible Ebola Virus Disease symptoms. Initial Sepsis Screen: Does the patient meet any 2 criteria? No. Patient's initial sepsis screen is negative. Does the patient have a suspected source of infection? No. Patient's initial sepsis screen is negative. Risk Assessment: Do you want to hurt yourself or someone else? Patient reports no desire to harm self or others. Onset of symptoms was November 13, 2020. 10:34 Method Of Arrival: EMS: [facility] jd3 10:34 Acuity: NINI 3 jd3 Historical: - Allergies: 10:41 No Known Allergies; jd3 - Home Meds: 10:41 donepezil 10 mg oral tab 1 tab once daily [Active]; famotidine 20 mg Oral tab 1 tab jd3 once daily [Active]; trazodone 50 mg Oral tab 2 tabs daily [Active]; pantoprazole 40 mg oral TbEC 1 tab 2 times per day [Active]; levothyroxine 112 mcg tab 1 tab once daily [Active]; sertraline 25 mg oral tab 1 tab once daily [Active]; - PMHx: 10:41 Alzheimers; Dementia; Hypertension; Thyroid problem; jd3 - PSHx: 10:41 Back Surgeries; jd3 - Immunization history:: Adult Immunizations up to date. - Social history:: Smoking status: unknown. - Family history:: not pertinent. Screenin:43 Abuse screen: Denies threats or abuse. Nutritional screening: No deficits noted. jd3 Tuberculosis screening: No symptoms or risk factors identified. Fall Risk Ambulatory Aid- None/Bed Rest/Nurse Assist (0 pts). Gait- Normal/Bed Rest/Wheelchair (0 pts) Mental Status- Oriented to own ability (0 pts). Total Conley Fall Scale indicates No Risk (0-24 pts). Assessment: 10:42 General: Appears in no apparent distress. comfortable, Behavior is calm, cooperative, jd3 appropriate for age. Pain: Complains of pain in back Quality of pain is described as aching. Neuro: Level of Consciousness is awake, alert, obeys commands, confused, Oriented to person, place. Cardiovascular: Denies chest pain, Capillary refill < 3 seconds Patient's skin is warm and dry. Respiratory: Airway is patent Respiratory effort is even, unlabored, Respiratory pattern is regular, symmetrical, Parent/caregiver reports the patient having shortness of breath at rest. GI: No signs and/or symptoms were reported involving the gastrointestinal system. : No signs and/or symptoms were reported regarding the genitourinary system. EENT: No signs and/or symptoms were reported regarding the EENT system. Derm: Skin is intact, Skin is dry, Skin is normal, Skin temperature is warm. Musculoskeletal: Circulation, motion, and sensation intact. Range of motion: intact in all extremities. 11:56 Reassessment: No changes from previously documented assessment. Patient and/or family jd3 updated on plan of care and expected duration. Pain level reassessed. 12:50 Reassessment: Patient appears in no apparent distress at this time. No changes from jd3 previously documented assessment. Patient and/or family updated on plan of care and expected duration. Pain level reassessed. 13:50 Reassessment: Patient appears in no apparent distress at this time. No changes from jd3 previously documented assessment. Patient and/or family updated on plan of care and expected duration. Pain level reassessed. 14:45 Reassessment: Patient appears in no apparent distress at this time. No changes from jd3 previously documented assessment. Patient and/or family updated on plan of care and expected duration. Pain level reassessed. 15:40 Reassessment: Patient appears in no apparent distress at this time. No changes from jd3 previously documented assessment. Patient and/or family updated on plan of care and expected duration. Pain level reassessed. 16:32 Reassessment: Patient appears in no apparent distress at this time. No changes from [facility] previously documented assessment. Patient and/or family updated on plan of care and expected duration. Pain level reassessed. charting continued in [facility]. 18:12 Reassessment: Madan Tiwari (son) [phone]. [facility] Vital Signs: 10:41 BP 141 / 83; Pulse 93; Resp 17 S; Temp 98.3(O); Pulse Ox 92% on R/A; Weight 63.5 kg jd3 (R); Height 5 ft. 1 in. (154.94 cm) (R); Pain 5/10; 11:56 BP 140 / 85; Pulse 94; Resp 17 S; Pulse Ox 92% on R/A; jd3 13:25 Pulse Ox 88% on R/A; jd3 13:29 BP 129 / 75; Pulse 71; Resp 19 S; Pulse Ox 97% on 2 lpm NC; jd3 15:42 BP 124 / 71; Pulse 71; Resp 17 S; Pulse Ox 96% on 2 lpm NC; jd3 16:32 BP 115 / 69; Pulse 72; Resp 17 S; Pulse Ox 98% on R/A; jd3 10:41 Body Mass Index 26.45 (63.50 kg, 154.94 cm) [facility] ED Course: 10:33 Patient arrived in ED. em1 10:34 Fred Dickerson, ABDULKADIR is Primary Nurse. jd3 10:35 Dg Ruiz MD is Attending Physician. rn 10:36 Triage completed. jd3 10:42 Arm band placed on. jd3 10:43 Patient has correct armband on for positive identification. Bed in low position. Call [facility] light in reach. Side rails up X 1. Adult w/ patient. secured entrance monitor on. Pulse ox on. NIBP on. 11:40 XRAY CXR (1 view) In Process Unspecified. EDMS 12:04 Inserted saline lock: 22 gauge in left forearm, using aseptic technique. em1 12:42 Blu Mckeon is Hospitalizing Provider. rn 16:33 No provider procedures requiring assistance completed. Patient admitted, IV remains in j place. Administered Medications: 12:30 Drug: NS 0.9% 1000 ml Route: IV; Rate: 1000 ml; Site: left forearm; jd3 13:30 Follow up: Response: No adverse reaction; IV Status: Completed infusion jd3 13:10 Drug: Zosyn 3.375 grams Route: IVPB; Infused Over: 60 mins; Site: left forearm; jd3 14:10 Follow up: Response: No adverse reaction; IV Status: Completed infusion jd3 13:25 Drug: morphine 2 mg Route: IVP; Site: left forearm; jd3 14:20 Follow up: Response: No adverse reaction; RASS: Alert and Calm (0) jd3 Outcome: 12:43 Decision to Hospitalize by Provider. rn 16:33 Admitted to ER Hold. Please see [facility] for further documentation. jd3 16:33 Condition: stable 16:33 Instructed on the need for admit. 19:51 Admitted to Med/surg accompanied by tech, via stretcher, room 217, Other sbar Report rv called to KERRY PANCHAL 19:52 Patient left the ED. rv Signatures: Dispatcher [employer] EDDg Lewis MD MD rn Martinez, Onur em1 Fred Dickerson RN RN Tommy Valladares RN RN rv
--- NOTE | 2020-11-13 12:43 | EDPHYS ---
Physician Documentation [facility] Name: Kenisha Tiwari Age: 74 yrs Sex: Female : 1945 Arrival Date: 11/13/2020 Time: 10:33 Bed 4 Private MD: ED Physician Dg Ruiz HPI: 11/13 12:33 This 74 yrs old Female presents to ER via EMS with complaints of sob. rn 12:33 The patient has shortness of breath at rest. Onset: The symptoms/episode began/occurred rn this morning. Duration: The symptoms are continuous. The patient's shortness of breath is aggravated by nothing, is alleviated by nothing. Associated signs and symptoms: Pertinent positives: non-productive cough, Pertinent negatives: fever, hemoptysis. Severity of symptoms: At their worst the symptoms were moderate in the emergency department the symptoms have improved. The patient has not experienced similar symptoms in the past. The patient has not recently seen a physician. Reports trouble breathing this AM, family member noticed and called 911. + long standing dysphagia, is due for feeding tube in 2 weeks, + decreased po intake because of this. No chronic lung or heart problems. . Historical: - Allergies: 10:41 No Known Allergies; jd3 - Home Meds: 10:41 donepezil 10 mg oral tab 1 tab once daily [Active]; famotidine 20 mg Oral tab 1 tab jd3 once daily [Active]; trazodone 50 mg Oral tab 2 tabs daily [Active]; pantoprazole 40 mg oral TbEC 1 tab 2 times per day [Active]; levothyroxine 112 mcg tab 1 tab once daily [Active]; sertraline 25 mg oral tab 1 tab once daily [Active]; - PMHx: 10:41 Alzheimers; Dementia; Hypertension; Thyroid problem; jd3 - PSHx: 10:41 Back Surgeries; jd3 - Immunization history:: Adult Immunizations up to date. - Social history:: Smoking status: unknown. - Family history:: not pertinent. ROS: 12:33 Constitutional: Negative for fever, chills Eyes: Negative for injury, pain, redness, rn and discharge, ENT: + chronic dysphagia Cardiovascular: Negative for chest pain, palpitations, and edema, Respiratory: + cough and sob Abdomen/GI: Negative for abdominal pain, nausea, vomiting, diarrhea, and constipation, MS/Extremity: Negative for injury and deformity, Skin: Negative for injury, rash, and discoloration, Neuro: + generalized weakness Exam: 12:33 Constitutional: Thin female, mild tachypnea Head/Face: Normocephalic, atraumatic. rn Eyes: Periorbital areas with no swelling, redness, or edema. ENT: very dry MM Cardiovascular: Regular rate and rhythm. No pulse deficits. Respiratory: Mild tachypnea, no retractions, diminished right base Abdomen/GI: soft, non-tender Skin: Warm, dry MS/ Extremity: Pulses equal, no cyanosis. Neuro: Awake and alert, difficult to understand speech, + generalized weakness, nods yes and shakes head no. Vital Signs: 10:41 BP 141 / 83; Pulse 93; Resp 17 S; Temp 98.3(O); Pulse Ox 92% on R/A; Weight 63.5 kg jd3 (R); Height 5 ft. 1 in. (154.94 cm) (R); Pain 5/10; 11:56 BP 140 / 85; Pulse 94; Resp 17 S; Pulse Ox 92% on R/A; jd3 13:25 Pulse Ox 88% on R/A; jd3 13:29 BP 129 / 75; Pulse 71; Resp 19 S; Pulse Ox 97% on 2 lpm NC; jd3 15:42 BP 124 / 71; Pulse 71; Resp 17 S; Pulse Ox 96% on 2 lpm NC; jd3 16:32 BP 115 / 69; Pulse 72; Resp 17 S; Pulse Ox 98% on R/A; jd3 10:41 Body Mass Index 26.45 (63.50 kg, 154.94 cm) jd3 MDM: 10:35 Patient medically screened. rn 12:33 Differential diagnosis: pneumonia, Pneumothorax pulmonary edema, Sepsis aspiration. rn Data reviewed: vital signs, nurses notes, lab test result(s), EKG, radiologic studies, plain films, and as a result, I will admit patient. Counseling: I had a detailed discussion with the patient and/or guardian regarding: the historical points, exam findings, and any diagnostic results supporting the discharge/admit diagnosis, lab results, radiology results, the need for further work-up and treatment in the hospital. Response to treatment: the patient's symptoms have mildly improved after treatment, and as a result, I will admit patient. Admission orders: after a detailed discussion of the patient's condition and case, the admit orders are written by me. ED course: Pt with right sided pneumonia, very likely aspiration given dysphagia and dehydration, covered with abx and admitted to Dr. Mckeon.. 11/13 10:38 Order name: Blood Culture Adult (2) rn 11/13 10:38 Order name: BMP; Complete Time: 12:32 rn 11/13 10:38 Order name: CBC with Diff; Complete Time: 12:32 rn 11/13 10:38 Order name: NT PRO-BNP; Complete Time: 12:32 rn 11/13 10:38 Order name: Troponin (emerg Dept Use Only); Complete Time: 12:32 rn 11/13 10:38 Order name: Procalcitonin; Complete Time: 12:32 rn 11/13 10:38 Order name: XRAY CXR (1 view); Complete Time: 12:32 rn 11/13 12:21 Order name: CBC Smear Scan; Complete Time: 12:32 EDMS 11/13 13:20 Order name: COVID-19/FLU A+B; Complete Time: 16:52 EDMS 11/13 10:38 Order name: EKG; Complete Time: 10:39 rn 11/13 10:38 Order name: Cardiac monitoring; Complete Time: 10:46 rn 11/13 10:38 Order name: EKG - Nurse/Tech; Complete Time: 12:12 rn 11/13 10:38 Order name: IV Saline Lock; Complete Time: 12:06 rn 11/13 10:38 Order name: Labs collected and sent; Complete Time: 12:12 rn 11/13 10:38 Order name: O2 Per Protocol; Complete Time: 10:46 rn 11/13 10:38 Order name: O2 Sat Monitoring; Complete Time: 10:46 rn 11/13 14:26 Order name: CONS Physician Consult EDMS Administered Medications: 12:30 Drug: NS 0.9% 1000 ml Route: IV; Rate: 1000 ml; Site: left forearm; jd3 13:30 Follow up: Response: No adverse reaction; IV Status: Completed infusion jd3 13:10 Drug: Zosyn 3.375 grams Route: IVPB; Infused Over: 60 mins; Site: left forearm; jd3 14:10 Follow up: Response: No adverse reaction; IV Status: Completed infusion jd3 13:25 Drug: morphine 2 mg Route: IVP; Site: left forearm; jd3 14:20 Follow up: Response: No adverse reaction; RASS: Alert and Calm (0) jd3 Disposition: 11/13/20 12:43 Hospitalization ordered by Blu Mckeon for Inpatient Admission. Preliminary diagnosis are Pneumonia, unspecified organism, Hypoxemia, Dehydration. - Bed requested for Telemetry/MedSurg (Inpatient). - Status is Inpatient Admission. rv - Condition is Stable. - Problem is new. - Symptoms have improved. Signatures: Dispatcher [employer] EDMS Claudia Headley Roman, MD MD rn Davies, Jonathon, RN RN jTommy Chu RN RN rv Trim, Andrade tt3 Corrections: (The following items were deleted from the chart) 12:38 10:39 CORONAVIRUS+MR.LAB.BRZ ordered. EDSD EDMS 12:38 10:39 Influenza Screen (A \T\ B)+BA.LAB.BRZ ordered. EDSD EDMS 13:33 12:43 Hospitalization Ordered by Blu Mckeon for Inpatient Admission. Preliminary bd diagnosis is Pneumonia, unspecified organism; Hypoxemia; Dehydration. Bed requested for Telemetry/MedSurg (Inpatient). Status is Inpatient Admission. Condition is Stable. Problem is new. Symptoms have improved. rn 19:40 13:33 11/13/2020 12:43 Hospitalization Ordered by Blu Mckeon for Inpatient tt3 Admission. Preliminary diagnosis is Pneumonia, unspecified organism; Hypoxemia; Dehydration. Bed requested [facility] ER HOLD. Status is Inpatient Admission. Condition is Stable. Problem is new. Symptoms have improved. bd 19:52 19:40 11/13/2020 12:43 Hospitalization Ordered by Blu Mckeon for Inpatient rv Admission. Preliminary diagnosis is Pneumonia, unspecified organism; Hypoxemia; Dehydration. Bed requested for Telemetry/MedSurg (Inpatient). Status is Inpatient Admission. Condition is Stable. Problem is new. Symptoms have improved. tt3
[2020-11-13] MEDS ORDERED: PIPER/TAZO/NS 3.375gm 3.375 GM/100 ML BAG ONE ×2 (13:06→19:00)
[2020-11-13 13:20] LABS: SARS-COV-2 RT PCR NEGATIVE (NEGATIVE)
[2020-11-13] MEDS ORDERED: MORPHINE 2 MG/ML SYR ONE (13:32)
--- NOTE | 2020-11-13 14:38 | P.HP ---
Certification for Inpatient Patient admitted to: Inpatient With expected LOS: >2 Midnights Practitioner: I am a practitioner with admitting privileges, knowledge of patient current condition, hospital course, and medical plan of care. Services: Services provided to patient in accordance with Admission requirements found in Title 42 Section 412.3 of the Code of Federal Regulations Patient History Date of Service: 11/13/20 Reason for admission: Shortness of breath History of Present Illness: 74-year-old woman with a history of hypertension, Alzheimer dementia, thyroid problems, recently diagnosed with dysphagia was brought to the emergency department due to plane of shortness of breath. Family reports patient has experiencing intermittent shortness of breath. They also stated patient oral intake has been poor due to her dysphagia and she is supposed to have a PEG tube inserted soon. The family member was available to provide history. Patient cannot give any history due to advanced dementia. She has mild leukocytosis but does not meet criteria for sepsis. Chest x-ray demonstrate mild right basilar infiltrate suggestive of pneumonia. Patient is hospitalized for further management. - Past Medical/Surgical History -: Alzheimer dementia -: Hypertension -: Thyroid disorder -: Dysphagia Past Surgical History: Unable to obtain - Social History Smoking Status: Unknown if ever smoked Place of Residence: Home Review of Systems is unable to be obtained Physical Examination - Physical Exam General: Oriented x1, Confused, Other (Awake) HEENT: PERRLA, Mucous membr. moist/pink, EOMI, Sclerae nonicteric Neck: Supple, JVD not distended Respiratory: Clear to auscultation bilaterally, Normal air movement Cardiovascular: No edema, Regular rate/rhythm, Normal S1 S2 Gastrointestinal: Normal bowel sounds, Soft and benign, Non-distended, No tenderness Musculoskeletal: No swelling, No tenderness Integumentary: No rashes, No erythema Neurological: Normal speech, Normal strength at 5/5 x4 extr, Cranial nerves 3-12 intact - Studies Laboratory Data (last 24 hrs) 11/13/20 11:10: WBC 14.10 H D, Hgb 15.4 H, Hct 46.1 H, Plt Count 173 11/13/20 11:10: Sodium 140, Potassium 3.4 L, BUN 10, Creatinine 0.68, Glucose 126 H Assessment and Plan - Problems (Diagnosis) (1) Pneumonia Current Visit: Yes Status: Acute (2) Alzheimer's dementia Current Visit: Yes Status: Acute (3) Oropharyngeal dysphagia Current Visit: Yes Status: Acute - Plan Admit to the medical floor. Start IV Zosyn. Monitor CBC. Keep NPO for now. Speech evaluation. D5 normal saline. Consult to GI to evaluate for PEG tube insertion. Collect, validate and reconcile home medications. PT evaluate. Social service consult for discharge planning - Advance Directives Does patient have a Living Will: No Does patient have a Durable POA for Healthcare: No
[2020-11-13] MEDS: D5 0.9 NS 1,000 ML IV SCH ×2 (16:45→22:12)
[2020-11-13 17:09] VITALS: BMI 26.0
[2020-11-13] MEDS ORDERED: D5W 1,000 ML IV ONE (17:46)
[2020-11-13] MEDS: PIPER/TAZO/NS 3.375gm 3.375 GM/100 ML BAG IVPB SCH (18:00)
[2020-11-14] MEDS ORDERED: PIPER/TAZO/NS 3.375gm 3.375 GM/100 ML BAG ONE ×2 (00:59→04:44)
[2020-11-14] MEDS ORDERED: ENOXAPARIN 40 MG/0.4 ML SQ ONE (04:44)
[2020-11-14] MEDS: PIPER/TAZO/NS 3.375gm 3.375 GM/100 ML BAG IVPB SCH ×4 (05:24→17:52)
[2020-11-14 06:50] LABS: BUN Blood Urea Nitrogen 8 mg/dL (7-18); Bicarbonate 30 mmol/L (21-32); Glucose Level 110 mg/dL (74-106); Potassium 3.2 mmol/L (3.5-5.1); Sodium Level 144 mmol/L (136-145)
--- NOTE | 2020-11-14 08:52 | EKG ---
Test Date: 2020-11-13 Test Time: 12:24:30 Softball Core Molder: JOSHUA MEASUREMENT RESULTS: Intervals: Rate: 88 DE: 150 QRSD: 66 QT: 358 QTc: 433 [place]: P: 96 DE: 150 QRS: -58 T: -21 INTERPRETIVE STATEMENTS: Normal sinus rhythm Left axis deviation Low voltage QRS Inferior infarct, age undetermined Possible Anterolateral infarct, age undetermined Abnormal ECG Compared to ECG 11/13/2020 12:23:00 Left-axis deviation now present Left anterior fascicular block no longer present Myocardial infarct finding still present Electronically Signed On 11-14-20 08:50:10 CDT by Mika Pepe
[2020-11-14] MEDS: ENOXAPARIN 40 MG/0.4 ML SQ SCH (08:55)
[2020-11-14] MEDS: KCL 20 MEQ/100 mL IVPB 20 MEQ/100 ML BAG IV SCH ×2 (08:55→13:01)
--- NOTE | 2020-11-14 11:20 | P.PN ---
Subjective Date of Service: 11/14/20 Chief Complaint: Shortness of breath Subjective: No new changes (Complain of lower abdominal pain. Feels is due to hunger pangs) Physical Examination - Vital Signs Temperature: 98.3 F Blood Pressure: 134/67 Pulse: 70 Respirations: 18 Pulse Ox (%): 96 - Physical Exam General: Alert, In no apparent distress, Oriented x3, Cachectic HEENT: Atraumatic, Normocephalic, PERRLA Neck: Supple, 2+ carotid pulse no bruit Respiratory: Diminished, Other (on NC 02 ) Cardiovascular: No edema, Normal pulses, Regular rate/rhythm, Normal S1 S2 Capillary refill: <2 Seconds Gastrointestinal: Normal bowel sounds, Soft and benign, Non-distended, Tenderness (lower b/l quadrants ) Musculoskeletal: No clubbing, No swelling Integumentary: No rashes Neurological: Normal speech, Normal strength at 5/5 x4 extr, Normal tone - Studies Laboratory Data (last 24 hrs) 11/13/20 11:10: WBC 14.10 H D, Hgb 15.4 H, Hct 46.1 H, Plt Count 173 11/13/20 11:10: Sodium 140, Potassium 3.4 L, BUN 10, Creatinine 0.68, Glucose 126 H Microbiology Data (last 24 hrs): 11/13/20 12:58 Blood - Blood Anaerobic Blood Culture - Final Assessment And Plan - Current Problems (Diagnosis) (1) Alzheimer's dementia Current Visit: Yes Status: Acute (2) Oropharyngeal dysphagia Current Visit: Yes Status: Acute (3) Pneumonia Current Visit: Yes Status: Acute Physician Review Additional Text: Presumed aspiration pneumonia Dysphagia Leukocytosis Hypokalemia Alzheimer's dementia PLAN -continue antibiotics with Zosyn Follow GI for PEG tube insertion Given her lower abdominal pain which does not seem consistent with gastritis will obtain CT of the abdomen to rule out diverticulosis dmit to the medical floor. We will replete potassium Change IVF to D5 NS with KCl Monitor CBC. Follow Speech evaluation. Follow PT and Social service consult for discharge planning Time Spent Managing PTS Care (In Minutes): 30
[2020-11-14] MEDS: D5 0.9 NS 1,000 ML with POTASSIUM CL 40 MEQ IV SCH ×4 (12:00→16:16)
--- NOTE | 2020-11-14 12:20 | RAD REPORT ---
EXAM DESCRIPTION: CT - Abdomen Pelvis Wo Contrast - 11/14/2020 12:09 pm CLINICAL HISTORY: Abdominal pain COMPARISON: 2019 TECHNIQUE: Computed axial tomography of the abdomen and pelvis was obtained. IV and oral contrast we re not requested. All CT scans are performed using dose optimization technique as appropriate and may include automated exposure control or mA/KV adjustment according to patient size. FINDINGS: The evaluation of solid organs, vessels and bowel is limited secondary to the lack of con trast administration. Mild right lower lobe opacity having the appearance of pneumonia. Small right pleural effusion. The liver, spleen, pancreas, adrenals and kidneys appear grossly normal. Postsurgical changes involve the spine. There is no evidence of diverticulitis. Small umbilical herni a IMPRESSION: Mild right lower lobe pneumonia
--- NOTE | 2020-11-14 19:24 | RAD REPORT ---
EXAM DESCRIPTION: RAD - Abdomen 1 View (KUB) - 11/14/2020 7:12 pm CLINICAL HISTORY: dobhoff placement Pain COMPARISON: <Comparisons> FINDINGS: The enteric tube is in the stomach.
[2020-11-15] MEDS: PIPER/TAZO/NS 3.375gm 3.375 GM/100 ML BAG IVPB SCH ×3 (02:02→16:34)
[2020-11-15 05:40] LABS: Absolute Lymphocytes (CBC) 1.1 K/uL (0.7-4.9); Basophils % 0.4 % (0-1.3); Hematocrit 37.7 % (36.0-45.0); Lymphocytes % 13.8 % (15.3-44.8); MPV 10.4 fL (7.6-11.3); RBC Red Blood Cell Count 4.12 M/uL (3.86-4.86)
[2020-11-15 05:59] LABS: ALT/SGPT 18 U/L (12-78); AST/SGOT 22 U/L (15-37); Albumin 2.5 g/dL (3.4-5.0); Alkaline Phosphatase 81 U/L (45-117); BUN Blood Urea Nitrogen 5 mg/dL (7-18); Bicarbonate 27 mmol/L (21-32); Bilirubin Total 1.4 mg/dL (0.2-1.0); Glucose Level 108 mg/dL (74-106); Potassium 3.9 mmol/L (3.5-5.1); Protein, Total 6.4 g/dL (6.4-8.2); Sodium Level 145 mmol/L (136-145)
[2020-11-15] MEDS ORDERED: HYDRALAZINE HCL 20 MG/ML VIAL IV PRN (08:54)
[2020-11-15] MEDS: ENOXAPARIN 40 MG/0.4 ML SQ SCH (09:56)
[2020-11-15] MEDS: D5 0.9 NS 1,000 ML with POTASSIUM CL 40 MEQ IV SCH ×4 (09:56→15:12)
--- NOTE | 2020-11-15 16:56 | P.PN ---
Subjective Date of Service: 11/15/20 Chief Complaint: Shortness of breath Patient currently has no complain. She is seen by speech and she tolerated pureed diet and thickened liquids. Patient is not using the oxygen. Physical Examination - Vital Signs Temperature: 98.6 F Blood Pressure: 180/98 Pulse: 82 Respirations: 16 Pulse Ox (%): 93 - Physical Exam General: Oriented x2, Other (Awake) HEENT: Mucous membr. moist/pink, Other (NG-tube in place) Neck: Supple, JVD not distended Respiratory: Clear to auscultation bilaterally, Normal air movement Cardiovascular: No edema, Regular rate/rhythm, Normal S1 S2 Gastrointestinal: Normal bowel sounds, Soft and benign, Non-distended, No tenderness Musculoskeletal: No swelling, No tenderness Integumentary: No rashes Neurological: Other (No focal motor deficit.) - Studies Microbiology Data (last 24 hrs): 11/13/20 12:58 Blood - Blood Anaerobic Blood Culture - Final Assessment And Plan - Current Problems (Diagnosis) (1) Pneumonia Current Visit: Yes Status: Acute (2) Alzheimer's dementia Current Visit: Yes Status: Acute (3) Oropharyngeal dysphagia Current Visit: Yes Status: Acute - Plan Continue IV Zosyn. Monitor CBC. Start pureed diet and thickened liquids per speech recommendation. Speech want to reassess if she would tolerate the pureed diet prior to PEG tube insertion. Patient seen and evaluated by GI. Dr. Agudelo will follow up with the patient on Wednesday11/19/2020. Will discontinue IV fluid once patient tolerate feeding PT. Disposition: Home with home health.
[2020-11-15] MEDS: JEVITY 1.2 CAL LIQUID 1,000 ML BOT RTH SCH (17:06)
[2020-11-16] MEDS: PIPER/TAZO/NS 3.375gm 3.375 GM/100 ML BAG IVPB SCH ×3 (01:18→17:06)
[2020-11-16] MEDS: ACETAMINOPHEN 500 MG TAB PO PRN ×2 (01:25→22:50)
[2020-11-16 05:52] LABS: Absolute Lymphocytes (CBC) 1.5 K/uL (0.7-4.9); Basophils % 0.6 % (0-1.3); RBC Red Blood Cell Count 4.19 M/uL (3.86-4.86)
[2020-11-16 06:14] LABS: ALT/SGPT 86 U/L (12-78); AST/SGOT 122 U/L (15-37); Albumin 2.4 g/dL (3.4-5.0); Alkaline Phosphatase 137 U/L (45-117); BUN Blood Urea Nitrogen 5 mg/dL (7-18); Bicarbonate 26 mmol/L (21-32); Bilirubin Total 1.4 mg/dL (0.2-1.0); Glucose Level 99 mg/dL (74-106); Potassium 3.4 mmol/L (3.5-5.1); Protein, Total 6.3 g/dL (6.4-8.2); Sodium Level 141 mmol/L (136-145)
[2020-11-16] MEDS ORDERED: POTASSIUM 25 MEQ EFFERV TAB PO ONE (06:37)
[2020-11-16] MEDS: ENOXAPARIN 40 MG/0.4 ML SQ SCH (08:19)
--- NOTE | 2020-11-16 11:59 | P.PN ---
Subjective Date of Service: 11/16/20 Chief Complaint: Shortness of breath Patient currently has no complain. Patient is not using the oxygen. NG-tube in place for tube feeding. Physical Examination - Vital Signs Temperature: 98.7 F Blood Pressure: 168/86 Pulse: 77 Respirations: 18 Pulse Ox (%): 94 - Physical Exam General: In no apparent distress, Other (Awake) HEENT: Other (NGT) Neck: JVD not distended Respiratory: Clear to auscultation bilaterally, Normal air movement Cardiovascular: No edema, Regular rate/rhythm, Normal S1 S2 Gastrointestinal: Soft and benign, Non-distended, No tenderness Musculoskeletal: No swelling Integumentary: No rashes Neurological: Other (No focal motor deficit) Assessment And Plan - Current Problems (Diagnosis) (1) Pneumonia Current Visit: Yes Status: Acute (2) Alzheimer's dementia Current Visit: Yes Status: Acute (3) Oropharyngeal dysphagia Current Visit: Yes Status: Acute - Plan Diagnosis: Presumed aspiration pneumonia Dysphagia Leukocytosis Hypokalemia Alzheimer's dementia Continue IV Zosyn. Monitor CBC. Patient started on pureed diet and thickened liquids per speech recommendation. Speech want to reassess if she would tolerate the pureed diet prior to PEG tube insertion. Patient seen and evaluated by GI. Dr. Agudelo will follow up with the patient on Wednesday11/19/2020. Discontinue IV fluid. PT. Disposition: Home with home health.
[2020-11-16] MEDS: D5 0.9 NS 1,000 ML with POTASSIUM CL 40 MEQ IV SCH ×4 (15:23→18:24)
[2020-11-16] MEDS: JEVITY 1.2 CAL LIQUID 1,000 ML BOT RTH SCH (22:41)
[2020-11-17] MEDS: PIPER/TAZO/NS 3.375gm 3.375 GM/100 ML BAG IVPB SCH ×3 (00:28→16:49)
[2020-11-17 06:00] LABS: Absolute Lymphocytes (CBC) 1.2 K/uL (0.7-4.9); Basophils % 0.5 % (0-1.3); Lymphocytes % 22.7 % (15.3-44.8); MPV 9.9 fL (7.6-11.3); RBC Red Blood Cell Count 4.46 M/uL (3.86-4.86)
[2020-11-17 06:19] LABS: ALT/SGPT 183 U/L (12-78); AST/SGOT 176 U/L (15-37); Albumin 2.4 g/dL (3.4-5.0); Alkaline Phosphatase 150 U/L (45-117); BUN Blood Urea Nitrogen 5 mg/dL (7-18); Bicarbonate 26 mmol/L (21-32); Glucose Level 124 mg/dL (74-106); Potassium 4.3 mmol/L (3.5-5.1); Protein, Total 6.3 g/dL (6.4-8.2); Sodium Level 140 mmol/L (136-145)
[2020-11-17] MEDS: D5 0.9 NS 1,000 ML with POTASSIUM CL 40 MEQ IV SCH ×2 (08:00)
[2020-11-17] MEDS: ENOXAPARIN 40 MG/0.4 ML SQ SCH (09:27)
--- NOTE | 2020-11-17 13:14 | P.PN ---
Subjective Date of Service: 11/17/20 Chief Complaint: Shortness of breath Patient currently has no complain. NG-tube in place for tube feeding. Patient is also tolerated thickened liquids. Physical Examination - Vital Signs Temperature: 98.3 F Blood Pressure: 133/92 Pulse: 76 Respirations: 18 Pulse Ox (%): 94 - Physical Exam General: In no apparent distress, Other (Awake) HEENT: Mucous membr. moist/pink, Other (NGT) Neck: Supple, JVD not distended Respiratory: Clear to auscultation bilaterally, Normal air movement Cardiovascular: No edema, Regular rate/rhythm, Normal S1 S2 Gastrointestinal: Normal bowel sounds, Soft and benign, Non-distended Musculoskeletal: No swelling Assessment And Plan - Current Problems (Diagnosis) (1) Pneumonia Current Visit: Yes Status: Acute (2) Alzheimer's dementia Current Visit: Yes Status: Acute (3) Oropharyngeal dysphagia Current Visit: Yes Status: Acute - Plan Diagnosis: Presumed aspiration pneumonia Dysphagia Leukocytosis Hypokalemia Alzheimer's dementia Continue IV Zosyn for 1 more day and transition to oral antibiotic.. Monitor CBC. Patient started on pureed diet and thickened liquids per speech recommendation. Speech want to reassess if she would tolerate the pureed diet prior to PEG tube insertion. Speech to follow for reevaluation tomorrow Patient seen and evaluated by GI. Dr. Agudelo will follow up with the patient on Wednesday11/19/2020. PT. Disposition: Home with home health.
[2020-11-17] MEDS: JEVITY 1.2 CAL LIQUID 1,000 ML BOT RTH SCH (16:54)
[2020-11-18] MEDS: PIPER/TAZO/NS 3.375gm 3.375 GM/100 ML BAG IVPB SCH ×3 (01:03→17:54)
[2020-11-18 05:07] LABS: ALT/SGPT 161 U/L (12-78); AST/SGOT 81 U/L (15-37); Albumin 2.5 g/dL (3.4-5.0); Alkaline Phosphatase 167 U/L (45-117); BUN Blood Urea Nitrogen 8 mg/dL (7-18); Bicarbonate 27 mmol/L (21-32); Bilirubin Total 0.8 mg/dL (0.2-1.0); Glucose Level 114 mg/dL (74-106); Phosphorus 3.2 mg/dL (2.5-4.9); Potassium 4.1 mmol/L (3.5-5.1); Protein, Total 6.5 g/dL (6.4-8.2); Sodium Level 140 mmol/L (136-145)
[2020-11-18] MEDS: ENOXAPARIN 40 MG/0.4 ML SQ SCH (08:00)
--- NOTE | 2020-11-18 14:47 | RAD REPORT ---
EXAM DESCRIPTION: RAD - Barium Swallow Modified - 11/18/2020 2:38 pm CLINICAL HISTORY: PEG placement tomorrow Cough, aspiration, pending PEG tube placement COMPARISON: None. TECHNIQUE: The patient was given liquid, semi-solid and solid forms of barium. Lateral view fluorosc opic imaging was performed in conjunction with speech pathology service. FINDINGS: Cineloop acquisitions: 18 Fluoro time: 4 minutes 30 seconds ASPIRATION: cough with thin and nectar PHARYNGEAL : vallecular mild - monderate with thin , mild with nectar , honey, and pudding reduced t o min on cued consecutive swallows , PYRIFORM -moderate with thin mild with nectar, honey , puree , thin, mule developer wall mild with all consistencies IMPRESSION: Modified barium swallow as summarized above and fully detailed on speech pathology repor t.
[2020-11-18] MEDS: JEVITY 1.2 CAL LIQUID 1,000 ML BOT RTH SCH (17:54)
[2020-11-19] MEDS: PIPER/TAZO/NS 3.375gm 3.375 GM/100 ML BAG IVPB SCH ×3 (00:30→17:00)
[2020-11-19] MEDS: D5 0.45 NS 1,000 ML IV SCH ×3 (02:13→20:48)
[2020-11-19 05:39] LABS: Absolute Lymphocytes (CBC) 1.7 K/uL (0.7-4.9); Basophils % 0.6 % (0-1.3); Hematocrit 42.9 % (36.0-45.0); MPV 9.1 fL (7.6-11.3); RBC Red Blood Cell Count 4.65 M/uL (3.86-4.86)
[2020-11-19 05:53] LABS: ALT/SGPT 117 U/L (12-78); AST/SGOT 41 U/L (15-37); Albumin 2.6 g/dL (3.4-5.0); Alkaline Phosphatase 149 U/L (45-117); BUN Blood Urea Nitrogen 9 mg/dL (7-18); Bicarbonate 27 mmol/L (21-32); Bilirubin Total 0.8 mg/dL (0.2-1.0); Glucose Level 102 mg/dL (74-106); Magnesium 2.4 mg/dL (1.8-2.4); Phosphorus 4.1 mg/dL (2.5-4.9); Potassium 4.1 mmol/L (3.5-5.1); Protein, Total 6.7 g/dL (6.4-8.2); Sodium Level 138 mmol/L (136-145)
[2020-11-19] MEDS: ENOXAPARIN 40 MG/0.4 ML SQ SCH (08:37)
--- NOTE | 2020-11-19 11:01 | P.PN ---
Subjective Date of Service: 11/19/20 Chief Complaint: Shortness of breath Subjective: No new changes (no acute events overnight. patient without any new complaints this morning, reports breathing comfortably, awaiting PEG tube) Physical Examination - Vital Signs Temperature: 98 F Blood Pressure: 129/70 Pulse: 81 Respirations: 16 Pulse Ox (%): 92 - Studies Microbiology Data (last 24 hrs): 11/13/20 12:50 Blood - Blood Aerobic Blood Culture - Final No growth in 5 days. 11/13/20 12:50 Blood - Blood Anaerobic Blood Culture - Final No growth in 5 days. 11/13/20 12:58 Blood - Blood Aerobic Blood Culture - Final No growth in 5 days. 11/13/20 12:58 Blood - Blood Anaerobic Blood Culture - Final Assessment & Plan Physician Review Additional Text: Physical Exam General: NAD, AAOx3 HEENT: NGT in place Respiratory: Clear to auscultation bilaterally, Normal air movement Cardiovascular: No edema, Regular rate/rhythm, Normal S1 S2 Gastrointestinal: Normal bowel sounds, Soft, nontender, nondistended Musculoskeletal: No swelling Problem List Pneumonia, presumed aspiration Oropharyngeal dysphagia Leukocytosis Hypokalemia Alzheimer's dementia -continue antibiotics for pneumonia -respiratory status improving, remains afebrile, SpO2 > 94% on RA -speech therapy reassessed patient, NPO given risk of aspiration -GI consulted - plan for PEG tube today -PT consulted Dispo: home with home health, likely in 24-48hrs Time Spent Managing Pts Care (In Minutes): 35
[2020-11-19] MEDS ORDERED: NA CHLORIDE 0.9% 1,000 ML ONE (14:07)
[2020-11-19] MEDS ORDERED: propofoL 200 MG/20 ML VIAL IV ONE (14:40)
[2020-11-19] MEDS ORDERED: NS 0.9% VIAL 0 ML ONE (14:40)
[2020-11-19] MEDS ORDERED: ETOMIDATE 20 MG/10 ML VIAL IV ONE (14:40)
[2020-11-19] MEDS ORDERED: LIDOCAINE 1% MPF 5 ML VIAL ONE (14:40)
[2020-11-19] MEDS ORDERED: Phenylephrine HCl 10 MG/ML 1 ML VIAL ONE (14:40)
[2020-11-19] MEDS ORDERED: MORPHINE 2 MG/ML SYR IV ONE (20:33)
[2020-11-20] MEDS: PIPER/TAZO/NS 3.375gm 3.375 GM/100 ML BAG IVPB SCH ×3 (00:16→17:00)
--- NOTE | 2020-11-20 01:48 | OP ---
Surgeon: Allen Agudelo MD Physician Of Record: Dr. Blu Mckeon. Procedure Performed: Esophagogastroduodenoscopy. Indication For Procedure: Failure to thrive, progressing dysphagia, weight loss. Plan: Current plan EGD with PEG placement if possible. Technique: After obtaining informed consent from the patient and her next-of-kin explaining risks an d complications, which include, but are not limited to bleeding, infection, perforation, anesthesia c omplications. The patient was placed in a supine position and sedation was given. From then on, the scope was advanced through the mouth and carefully guided up till the second portion of the duodenum . After the completion of the examination, scope and equipment examination, the PEG tube was placed as detailed below. After all that, scope and equipment were withdrawn and procedure terminated in a safe manner. Findings: 1.Esophagus: In the distal esophagus, there was evidence of grade A esophagitis as well as a mild e sophageal stricture that did not provide any resistance to the scope passing through. 2.Stomach: Mild patchy erythema seen in the body and antrum. Biopsies were done. 3.Duodenum: The bulb and second portion appeared normal. Subsequently, after the examination, we attempted to identify a good site for the feeding tube. We t ried multiple locations antrum and body. It appeared that in the midbody, the transillumination and one-to-one pressure were not good. Neither was in the upper body. However, in the distal body, we d id identify very good transillumination as well as one-to-one pressure, so that was the site chosen t o place a feeding tube. First we prepped the site with Betadine. Then injected lidocaine as a local anesthetic. Subsequently we placed [employer] 20-[place] PEG tube with a pull guidewire techn ique. The external bumper was around 4 cm. Post placement, the position was confirmed with endoscop y. No complications were noted. Tolerance To Anesthesia: Excellent. Complications: None. Postoperative Diagnoses: Esophagitis with mild esophageal stenosis, gastritis, status post peg place ment. Plan: Continue current management. Keep n.p.o. till tomorrow. Nutrition evaluation. Based on nutr ition recommendation, can start feeding from tomorrow at 20 cc and advance as tolerated. Keep head o f bed elevated to 45 degrees. Oral PPI through feeding tube. We will await biopsy results. This pl an of care was discussed with the patient's family and also the primary care team. US/MODL Voice ID: [id number] Report ID: [id number]
[2020-11-20 04:53] LABS: Absolute Lymphocytes (CBC) 1.7 K/uL (0.7-4.9); Basophils % 0.4 % (0-1.3); Hematocrit 40.3 % (36.0-45.0); MPV 9.4 fL (7.6-11.3)
[2020-11-20 05:26] LABS: BUN Blood Urea Nitrogen 8 mg/dL (7-18); Bicarbonate 25 mmol/L (21-32); Glucose Level 115 mg/dL (74-106); Magnesium 2.3 mg/dL (1.8-2.4); Potassium 4.3 mmol/L (3.5-5.1); Sodium Level 138 mmol/L (136-145)
[2020-11-20] MEDS ORDERED: Pantoprazole (granules) 40 MG/BLIST PACKET FT SCH (07:30)
[2020-11-20] MEDS: ENOXAPARIN 40 MG/0.4 ML SQ SCH (09:29)
[2020-11-20] MEDS: D5 0.45 NS 1,000 ML IV SCH (09:29)
[2020-11-20] MEDS: JEVITY 1.2 CAL LIQUID 1,000 ML BOT RTH SCH (09:47)
--- NOTE | 2020-11-20 13:56 | P.PN ---
Subjective Date of Service: 11/20/20 Chief Complaint: Shortness of breath Subjective: No new changes (doing well, reports some abdominal discomfort since procedure, no nausea/vomiting, AAOx3, generalized weakness) Review of Systems 10-point ROS is otherwise unremarkable Physical Examination - Vital Signs Temperature: 98.5 F Blood Pressure: 124/72 Pulse: 78 Respirations: 18 Pulse Ox (%): 96 Assessment & Plan Physician Review Additional Text: Physical Exam General: NAD, AAOx3 HEENT: NGT in place Respiratory: Clear to auscultation bilaterally, Normal air movement Cardiovascular: No edema, Regular rate/rhythm, Normal S1 S2 Gastrointestinal: Normal bowel sounds, Soft, PEG tube in place, dressing c/d/i Musculoskeletal: No swelling Problem List Pneumonia, presumed aspiration Oropharyngeal dysphagia, now s/p PEG (11/19) Leukocytosis Hypokalemia Alzheimer's dementia -continue antibiotics for pneumonia, today will complete 7 days -respiratory status improving, remains afebrile, SpO2 > 94% on RA -speech therapy reassessed patient, NPO given risk of aspiration -GI consulted - s/p PEG placement on 11/19, dietitian consulted, GI recommended starting feeds today -PT consulted -discussed with patient's [id number], states her (MPOA) feel that it is in patient's best interest to go to a SNF upon discharge Dispo: SW/ADITYA consulted for SNF, will likely be ready for discharge in 24-48hrs Time Spent Managing Pts Care (In Minutes): 35
[2020-11-20] MEDS: DONEPEZIL HCL 5 MG TAB FT SCH (20:16)
[2020-11-21] MEDS: PIPER/TAZO/NS 3.375gm 3.375 GM/100 ML BAG IVPB SCH ×2 (01:45→11:07)
[2020-11-21] MEDS: ACETAMINOPHEN 500 MG TAB PO PRN ×2 (02:17→14:21)
[2020-11-21] MEDS ORDERED: ACETAMINOPHEN 325 MG TABLET ONE (02:34)
[2020-11-21] MEDS: SERTRALINE HCL 50 MG TAB FT SCH (10:01)
[2020-11-21] MEDS: ENOXAPARIN 40 MG/0.4 ML SQ SCH (10:01)
[2020-11-21] MEDS: LEVOTHYROXINE SOD 0.112 MG TAB FT SCH (11:07)
[2020-11-21] MEDS: JEVITY 1.2 CAL LIQUID 1,000 ML BOT RTH SCH (14:26)
--- NOTE | 2020-11-21 16:01 | P.PN ---
Subjective Date of Service: 11/21/20 Chief Complaint: Shortness of breath Subjective: No new changes (doing well, tolerating PEG tube feeds, confused, oriented x3, reports continued back pain, generalized weakness) Review of Systems 10-point ROS is otherwise unremarkable Physical Examination - Vital Signs Temperature: 98.8 F Blood Pressure: 120/60 Pulse: 81 Respirations: 18 Pulse Ox (%): 94 Assessment & Plan Physician Review Additional Text: Physical Exam General: NAD, AAOx3 HEENT: normal conjunctiva, sclera anicteric Respiratory: Clear to auscultation bilaterally, Normal air movement Cardiovascular: No edema, Regular rate/rhythm, Normal S1 S2 Gastrointestinal: Normal bowel sounds, Soft, PEG tube in place, dressing c/d/i Musculoskeletal: No swelling Problem List Pneumonia, presumed aspiration Oropharyngeal dysphagia, now s/p PEG (11/19) Hypokalemia, resolved Alzheimer's dementia -continue antibiotics for pneumonia, completed 7 days of zosyn, transitioned to augmentin on 11/21 -respiratory status improved remains afebrile, SpO2 > 94% on RA -speech therapy reassessed patient, NPO given risk of aspiration -GI consulted - s/p PEG placement on 11/19, dietitian consulted -PT consulted -discussed with patient's [id number], states her (MPOA) feel that it is in patient's best interest to go to a SNF upon discharge Dispo: SW/CM consulted for SNF awaiting completion of paperwork / acceptance Time Spent Managing Pts Care (In Minutes): 35
[2020-11-21] MEDS: Pantoprazole (granules) 40 MG/BLIST PACKET FT SCH (17:42)
[2020-11-21] MEDS: DONEPEZIL HCL 5 MG TAB FT SCH (21:00)
[2020-11-21] MEDS: AMOX/K CLAV 875 MG TAB FT SCH (22:12)
[2020-11-22] MEDS: ACETAMINOPHEN 500 MG TAB PO PRN (01:26)
[2020-11-22] MEDS: Pantoprazole (granules) 40 MG/BLIST PACKET FT SCH (06:09)
[2020-11-22] MEDS: LEVOTHYROXINE SOD 0.112 MG TAB FT SCH (09:56)
[2020-11-22] MEDS: AMOX/K CLAV 875 MG TAB FT SCH ×2 (09:57→20:57)
[2020-11-22] MEDS: SERTRALINE HCL 50 MG TAB FT SCH (09:57)
[2020-11-22] MEDS: ENOXAPARIN 40 MG/0.4 ML SQ SCH (09:58)
[2020-11-22] MEDS: JEVITY 1.2 CAL LIQUID 1,000 ML BOT RTH SCH (09:59)
[2020-11-22] MEDS: DONEPEZIL HCL 5 MG TAB FT SCH (20:56)
--- NOTE | 2020-11-22 21:18 | P.PN ---
Subjective Date of Service: 11/22/20 Chief Complaint: Shortness of breath Subjective: Improving (doing well, denies back pain this morning, reports feeling better) Review of Systems 10-point ROS is otherwise unremarkable Physical Examination - Vital Signs Temperature: 98.6 F Blood Pressure: 119/70 Pulse: 77 Respirations: 18 Pulse Ox (%): 93 Assessment & Plan Physician Review Additional Text: Physical Exam General: NAD, AAOx3 HEENT: normal conjunctiva, sclera anicteric Respiratory: Clear to auscultation bilaterally, Normal air movement Cardiovascular: No edema, Regular rate/rhythm, Normal S1 S2 Gastrointestinal: Normal bowel sounds, Soft, PEG tube in place, dressing c/d/i Musculoskeletal: No swelling Problem List Pneumonia, presumed aspiration Oropharyngeal dysphagia, now s/p PEG (11/19) Hypokalemia, resolved Alzheimer's dementia -continue antibiotics for pneumonia, s/p 7 days of zosyn, transitioned to augmentin on 11/21 -respiratory status improved remains afebrile, SpO2 > 94% on RA -speech therapy reassessed patient, NPO given risk of aspiration -GI consulted - s/p PEG placement on 11/19, dietitian consulted, tolerating tube feeds -PT consulted -discussed with patient's [id number], states her (MPOA) feel that it is in patient's best interest to go to a SNF upon discharge Dispo: SW/CM consulted for SNF. Patient tentatively accepted / awaiting for family to complete paperwork for final acceptance Time Spent Managing Pts Care (In Minutes): 35
[2020-11-23] MEDS: JEVITY 1.2 CAL LIQUID 1,000 ML BOT RTH SCH (05:18)
[2020-11-23] MEDS: Pantoprazole (granules) 40 MG/BLIST PACKET FT SCH (05:33)
[2020-11-23] MEDS: AMOX/K CLAV 875 MG TAB FT SCH (08:35)
[2020-11-23] MEDS: SERTRALINE HCL 50 MG TAB FT SCH (08:35)
[2020-11-23] MEDS: ACETAMINOPHEN 500 MG TAB PO PRN (08:35)
[2020-11-23] MEDS: ENOXAPARIN 40 MG/0.4 ML SQ SCH (08:36)
[2020-11-23] MEDS: LEVOTHYROXINE SOD 0.112 MG TAB FT SCH (08:38)
[2020-11-23 09:57] VITALS: O2SAT 94
[2020-11-23 10:26] VITALS: BP 128/67; TEMP 98.8
--- NOTE | 2020-11-23 21:46 | P.DS ---
Admission Date: 11/13/20 Discharge Date: 11/23/20 Disposition: TRANSFER TO SNF - REHAB Discharge Condition: GOOD Reason for Admission: Shortness of breath Consultations: GI - Dr. Agudelo Procedures: CXR (11/13): Mild right basilar opacity may represent pneumonia CT Abd/Pelvis (11/14): Mild right lower lobe pneumonia KUB (11/14): enteric tube is in the stomach. Modified Barium Swallow (11/18): PEG placement (11/20): by Dr. Allen Agudelo Problem List Pneumonia, presumed aspiration Oropharyngeal dysphagia, now s/p PEG (11/19) Hypokalemia, resolved Alzheimer's dementia Brief History of Present Illness: 74-year-old woman with a history of hypertension, Alzheimer dementia, thyroid problems, recently diagnosed with dysphagia was brought to the emergency department due to plane of shortness of breath. Family reports patient has experiencing intermittent shortness of breath. They also stated patient oral intake has been poor due to her dysphagia and she is supposed to have a PEG tube inserted soon. The family member was available to provide history. Patient cannot give any history due to advanced dementia. She has mild leukocytosis but does not meet criteria for sepsis. Chest x-ray demonstrate mild right basilar infiltrate suggestive of pneumonia. Patient is hospitalized for further management. Hospital Course: Treated empirically for aspiration pneumonia. GI was consulted and after acute infection improved, patient was taken for PEG tube placement, without complications. She tolerated PEG tube feeds well, without issue. She worked with PT and was recommended further ongoing treatment. Patient was discharged to SNF. Patient did report slight aggravation of lower back pain while in hopsital, but this improved without any intervention. Vital Signs/Physical Exam: Physical Exam General: NAD, AAOx3 HEENT: normal conjunctiva, sclera anicteric Respiratory: Clear to auscultation bilaterally, Normal air movement Cardiovascular: No edema, Regular rate/rhythm, Normal S1 S2 Gastrointestinal: Normal bowel sounds, Soft, PEG tube in place, dressing c/d/i Musculoskeletal: No swelling Temp Pulse Resp BP Pulse Ox 98.8 F 77 18 128/67 90 L 11/23/20 08:00 11/23/20 08:00 11/23/20 08:00 11/23/20 08:00 11/23/20 08:00 Laboratory Data at Discharge: WBC 9.20 K/uL (4.3-10.9) 11/20/20 04:31 Hgb 13.9 g/dL (12.0-15.0) 11/20/20 04:31 Hct 40.3 % (36.0-45.0) 11/20/20 04:31 Plt Count 233 K/uL (152-406) 11/20/20 04:31 Sodium 138 mmol/L (136-145) 11/20/20 04:31 Potassium 4.3 mmol/L (3.5-5.1) 11/20/20 04:31 BUN 8 mg/dL (7-18) 11/20/20 04:31 Creatinine 0.55 mg/dL (0.55-1.3) 11/20/20 04:31 Glucose 115 mg/dL (74-106) H 11/20/20 04:31 Phosphorus 4.1 mg/dL (2.5-4.9) 11/19/20 05:05 Magnesium 2.3 mg/dL (1.8-2.4) 11/20/20 04:31 Total Bilirubin 0.8 mg/dL (0.2-1.0) 11/19/20 05:05 AST 41 U/L (15-37) H 11/19/20 05:05 ALT 117 U/L (12-78) H 11/19/20 05:05 Alkaline Phosphatase 149 U/L (45-117) H 11/19/20 05:05 Home Medications: Donepezil HCl 10 mg PO DAILY 11/13/20 Levothyroxine [Synthroid*] 112 mcg PO DAILY 11/13/20 Sertraline [Zoloft*] 25 mg PO DAILY 11/13/20 Trazodone [Desyrel*] 2 tab PO DAILY 11/13/20 Amox/Clavulanate [Augmentin 875-125 Tab*] 875 mg FT BID 3 Days #6 tab 11/22/20 Pantoprazole Granules [Protonix Granules*] 40 mg FT BID 30 Days #60 packet 11/22/20 New Medications: Amox/Clavulanate [Augmentin 875-125 Tab*] 875 mg FT BID 3 Days #6 tab Pantoprazole Granules [Protonix Granules*] 40 mg FT BID 30 Days #60 packet Physician Discharge Instructions: PROBLEM: Pneumonia GOAL: Clear understanding of disease process INSTRUCTIONS: You were found to have pneuomonia - improved with antibiotics and you are discharged with a few more days of antibiotics. A PEG tube was placed, and you are to continue tube feeds (Jevity 1.2 at goal rate of 50 ml/hr). You are high risk of aspiration. Continue to work with speech therapy. You were also found to have some gastritis of your stomach, and prescribed pro tonix via your PEG tube. Diet: NPO, jevity Activity: Fall precautions DME DME: Date Ordered: Name of Company: [employer] Services Needed: Correction Name of Company: [facility] [phone] Date or Referral: 11/20/20 IMMUNIZATION Influenza Vaccine Indicated: Influenza Vaccine Given: Date Given: Pneumonia Vaccine Indicated: No Pneumonia Vaccine Given: Date Given: Diet: NPO, jevit Activity: Fall precautions Followup: Mart Mckeon MD [Primary Care Provider] - Time spent managing pt's care (in minutes): 35
--- NOTE | 2020-12-24 18:48 | P.PN ---
Subjective Date of Service: 11/18/20 Chief Complaint: Shortness of breath No new complain NG-tube in place for tube feeding. Physical Examination - Vital Signs Temperature: 98.8 F Blood Pressure: 128/67 Pulse: 77 Respirations: 18 Pulse Ox (%): 90 - Physical Exam General: In no apparent distress HEENT: Mucous membr. moist/pink Respiratory: Clear to auscultation bilaterally, Normal air movement Cardiovascular: No edema, Regular rate/rhythm Gastrointestinal: Soft and benign, Non-distended Musculoskeletal: No swelling Assessment And Plan - Current Problems (Diagnosis) (1) Pneumonia Status: Acute (2) Alzheimer's dementia Status: Acute (3) Oropharyngeal dysphagia Status: Acute - Plan Diagnosis: Presumed aspiration pneumonia Dysphagia Leukocytosis Hypokalemia Alzheimer's dementia Continue antibiotics. Monitor CBC. Patient started on pureed diet and thickened liquids per speech recommendation. MBS done. Confirms oropharyngeal dysphagia. Dr. Agudelo will follow up with the patient on Wednesday11/19/2020 for PEG tube placement. Continue PT. Physician Review Additional Text: Physical Exam General: NAD, AAOx3 HEENT: normal conjunctiva, sclera anicteric Respiratory: Clear to auscultation bilaterally, Normal air movement Cardiovascular: No edema, Regular rate/rhythm, Normal S1 S2 Gastrointestinal: Normal bowel sounds, Soft, PEG tube in place, dressing c/d/i Musculoskeletal: No swelling Problem List Pneumonia, presumed aspiration Oropharyngeal dysphagia, now s/p PEG (11/19) Hypokalemia, resolved Alzheimer's dementia -continue antibiotics for pneumonia, s/p 7 days of zosyn, transitioned to augmentin on 11/21 -respiratory status improved remains afebrile, SpO2 > 94% on RA -speech therapy reassessed patient, NPO given risk of aspiration -GI consulted - s/p PEG placement on 11/19, dietitian consulted, tolerating tube feeds -PT consulted -discussed with patient's [id number], states her (MPOA) feel that it is in patient's best interest to go to a SNF upon discharge Dispo: SW/CM consulted for SNF. Patient tentatively accepted / awaiting for family to complete paperwork for final acceptance
--- NOTE | 2021-01-02 12:35 | CON ---
Additional Attending Physician: Dr. Mckeon. Reason For Consultation: PEG placement. History Of Presenting Illness: The patient is a 74-year-old woman with history of hypertension, adva ncing dementia, thyroid problems with recent dysphagia, who was planned for an outpatient PEG placeme nt, but developed shortness of breath, was admitted to the hospital with a diagnosis of possibly aspi ration pneumonia. GI was consulted for PEG placement. Past Medical History: As above. Past Surgical History: None pertinent to the current issue. Social History: Unable to obtain due to the patient's condition. Review of Systems: Unable to obtain. Allergies: NO KNOWN DRUG ALLERGIES. Physical Examination: Vital Signs: The patient is afebrile, not tachycardic, not tachypneic, normotensive. HEENT: Head atraumatic, normocephalic. Pupils equally reactive. Neck: Supple. Chest: Bilateral air entry. Abdomen: Soft, nontender, nondistended. Bowel sounds present. Extremities: No pedal edema. STEVEDORE DOCK: Alert, awake. Laboratory Data: Reviewed. No significant abnormality except for mild elevation of liver enzymes. Impression: A 74-year-old woman with advancing dysphagia and failure to thrive. No aspiration pneum onia. May benefit for PEG placement. Plan: Later on, I was able to get in touch with her family member and discussed possibility of PEG p lacement. She actually wants us to proceed with a feeding tube placement, so for now we will continu e the antibiotics to treat pneumonia and in 48 hours after adequate antibiotics, we will plan for a P EG tube placement. The risks and complications of the procedure, which include, but are not limited to bleeding, infection, perforation, and anesthesia complication were discussed. The family understa nds and agreed. US/MODL Voice ID: [id number] Report ID: [id number]
== END 2020-11-23 11:38 | DRG 178 ==
LOC: ER 10:23 → ERHOLD 14:24 → UNDODISIN 18:21 → 2ND 19:39
PROVIDERS: ADMIT Internal Medicine; ATTEND Hospitalist
PROC: 0DB68ZX Excision of Stomach, Via Natural or Artificial Opening Endoscopic, Diagnostic (ICD-10-PCS; 2020-11-19)
PROC: 0DH63UZ Insertion of Feeding Device into Stomach, Percutaneous Approach (ICD-10-PCS; principal; 2020-11-19 14:00)
DX: J69.0 Pneumonitis due to inhalation of food and vomit (principal); R64 Cachexia; I10 Essential (primary) hypertension; D72.829 Elevated white blood cell count, unspecified; G30.9 Alzheimer's disease, unspecified; F02.80 Dementia in other diseases classified elsewhere, unspecified severity, without behavioral disturbance, psychotic disturbance, mood disturbance, and anxiety; E87.6 Hypokalemia; K20.90 Esophagitis, unspecified without bleeding; K22.2 Esophageal obstruction; K29.70 Gastritis, unspecified, without bleeding; L89.151 Pressure ulcer of sacral region, stage 1; R13.12 Dysphagia, oropharyngeal phase; Z79.899 Other long term (current) drug therapy; Z68.26 Body mass index [BMI] 26.0-26.9, adult; Z79.890 Hormone replacement therapy; Z20.822 Contact with and (suspected) exposure to COVID-19
CPT/HCPCS: 0240U; 36415; 71045; 74018; 74176; 74230; 80048; 80053; 82947; 83735; 83880; 84100; 84132; 84145; 84484; 85025; 87040; 88305; 88312; 92610; 92611; 93005; 96361; 96365; 96375; 97110; 97116; 97161; 97530; 99285; J1650; J2270; J2370; J2543; J2704; J3480; J7030; J7042; J7799; U0003

== ENCOUNTER 2021-01-04 19:01 | Inpatient (IN) | payer OTHER ==
--- OUTSIDE RECORDS SUMMARY | 2021-01-04 19:04 | XMS REPORT | Continuity of Care Document ---
:1945 Author Organization [facility] t Address [address] [place] [address] Care Team Providers Name Role Phone Asked, Pcp Primary Care Physician Unavailable Chris Mckeon MD Attending Clinician Problems Condition Condition Condition Status Onset Resolution Last Treating Co mments Source Name Details Category Date Date Treatment Clinician Date Acute Acute Disease Active [facility] bronchitis bronchitis 09-10 Assessmen Methodi 00:00: t & Plan: st 00 Formattin g of this note might be different from the original. History and clinical findings consisten t with acute bronchiti s. Discussed possible etiologie s however given chronicit y antibioti c therapy preferred .Azithrom ycin 250 mg by mouth in a Z-Jay prescribe dRescue inhaler prescribe [place] precautio ns givenFoll ow-up in clinic in 5 to 7 days if symptoms do not improve Viral Viral Disease Active [place] conjunctiv conjunctiv 2- Me thodi itis of itis of 00:00: st left eye left eye 00 Bilateral Bilateral Disease Active Last Rosa Isela ston impacted impacted 2 Assessmen Met hodi cerumen cerumen 00:00: t & Plan: st 00 Formattin g of this note might be different from the original. Ear cerumen removal by ear irrigatio n b/l. Resolved. 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 -2.1 T-score of Femoral neck Breast Breast Disease Active 2015-08 [place] cancer cancer 10-05 Methodi screening screening 00:00: st 00 GERD GERD Disease Active 2015-08 [facility] (gastroeso (gastroeso 10-05 Assessmen Methodi phageal phageal 00:00: t & Plan: st reflux reflux Formattin disease) disease) g of this note might be different from the original. History and clinical findings suggestiv e of persisten t GERD symptoms. Added antacid to PPI regimen.C ounseled her on dietary intervent nadir review previous endoscopy records once available Follow-up in office if condition does not improve and possible referral to GI for further evaluatio n Hyperlipid Hyperlipid Disease Active 2015-08 H cherelle salazar, emia, 10-05 Methodi mixed mixed 00:00: st 00 Obesity Obesity Disease Active 2015-08 [place] 10-05 Methodi 00:00: st 00 Allergies, Adverse Reactions, Alerts This patient has no known allergies or adverse reactions. Family History Family Member Diagnosis Comments Start Date Stop Date Source Natural father Stroke [facility] thodist Natural mother Hypertension [place] [facility]ianist Natural sister Cancer [facility] thodist Social History Social Habit Start Date Stop Date Quantity Comments Source Tobacco use and 2016-09-10 2016-09-10 Never used [facility] ethodist exposure 00:00:00 00:00:00 Alcohol intake 2016-09-10 2016-09-10 Current [facility] thodist 00:00:00 00:00:00 non-drinker of alcohol (finding) Sex Ass[birth year] At 1945-11-261944-11-26 Raphael Moore ethodist 00:00:00 00:00:00 Smoking Status Start Date Stop Date Source Never smoker [place] Methodis t Medications Ordered Filled Start Stop Current Ordering Indication Dosage Frequency Signature Comments Components Source Medication Medication Date Date Medication? Clinician (SIG) Name Name esomeprazol Yes 40mg QD Take 40 mg [place] e (NexIUM) 02 by mouth Metho di 40 MG 14:02: daily st capsule 55 before breakfast. cholecalcif Yes 1000U QD Take 1,000 Lim pranav, 2-02 Units by Methodi vitamin D3, 14:02: mouth st (VITAMIN 55 daily. D3) 1,000 unit capsule CALCIUM Yes Take by [place] CARBONATE 02 mouth. Methodi (CALCIUM 14:02: st 600 ORAL) 55 aspirin Yes 81mg QD Take 81 mg [facility] ton (ECOTRIN) 02 by mouth Method i 81 MG 14:02: daily. st enteric 55 coated tablet alum-mag 2015-08 Yes Gastroesoph 30mL Q.25D Take 30 mL [place] hydroxide-s 2-27 ageal by mouth 4 M [...] ts Source Name Name Pneumococcal 2016-08-20 Completed Raphael Conjugate 13-Valent 00:00:00 Metho dist FLUZONE HIGH-DOSE PF 2016-07-21 Completed Mitzy ton 00:00:00 Sabian[facility] Tdap 2010-08-23 Completed [place] 00:00:00 Sab[facility] Procedures This patient has no known procedures. Plan of Care Planned Activity Planned Date Details Comments Source Future Scheduled 2025-03-09 COLONOSCOPY SCREENING Jose Roberto Mathis Test 00:00:00 [code = COLONOSCOPY SCREENING] Future Scheduled 2021-03-09 INFLUENZA VACCINE Jose rojo [facility] Test 00:00:00 [code = INFLUENZA VACCINE] Future Scheduled 2018-09-02 DXA SCAN [code = DXA Rosa Isela fagan Sab[facility] Test 00:00:00 SCAN] Future Scheduled 2017-08-20 65+ PNEUMOCOCCAL Lim Sab[facility]ist Test 00:00:00 VACCINE (2 of 2 - PPSV23) [code = 65+ PNEUMOCOCCAL VACCINE (2 of 2 - PPSV23)] Future Scheduled 1994 SHINGLES VACCINES (#1) Darcy villarreal Sabianist Test 00:00:00 [code = SHINGLES VACCINES (#1)] Future Scheduled 1956 COVID-19 VACCINE (1) Rosa Isela fagan Sab[facility] Test 00:00:00 [code = COVID-19 VACCINE (1)] Encounters Start End Encounter Admission Attending Care Care Encounter Source Date/Time Date/Time Type Type Clinicians Facility Department ID 2020-12-26 2020-12-26 Office [facility] [id number] 09:57:55 10:22:36 Visit [facility] [id number] Edward Fletcher [id number] Professio [phone] nal [address] 2020-12-26 2020-12-26 Telephone [place] [id number] 00:00:00 00:00:00 [facility] [id number] Edward Fletcher [id number] Professio [phone] nal [facility] [address] Results This patient has no known results.
[2021-01-04 19:48] LABS: Absolute Lymphocytes (CBC) 0.4 K/uL (0.7-4.9); Basophils % 0.3 % (0-1.3); Hematocrit 40.3 % (36.0-45.0); Lymphocytes % 3.9 % (15.3-44.8); MPV 9.3 fL (7.6-11.3); RBC Red Blood Cell Count 4.35 M/uL (3.86-4.86)
[2021-01-04 19:54] LABS: Urine Blood Trace-intact (Negative); Urine Glucose Negative (Negative); Urine Protein Negative (Negative); Urine pH 8.5 (5.0-7.0)
[2021-01-04 20:00] LABS: ALT/SGPT 100 U/L (12-78); AST/SGOT 55 U/L (15-37); Albumin 3.2 g/dL (3.4-5.0); Alkaline Phosphatase 122 U/L (45-117); BUN Blood Urea Nitrogen 9 mg/dL (7-18); Bicarbonate 26 mmol/L (21-32); Bilirubin Direct 0.3 mg/dL (0-0.2); Bilirubin Total 0.6 mg/dL (0.2-1.0); Creatine Phosphokinase 34 U/L (26-192); Glucose Level 126 mg/dL (74-106); Lipase 162 U/L (73-393); Potassium 4.1 mmol/L (3.5-5.1); Protein, Total 7.2 g/dL (6.4-8.2); Sodium Level 132 mmol/L (136-145); Troponin (Emerg Dept Use Only) < 0.02 ng/mL (0.0-0.045)
[2021-01-04 20:17] LABS: Urine Amorphous Sediment 2+ /HPF (NONE SEEN); Urine Bacteria 20-50 /HPF (<20); Urine RBC <5 /HPF (NONE SEEN)
[2021-01-04] MEDS ORDERED: NA CHLORIDE 0.9% 1,000 ML ONE (20:18)
[2021-01-04] MEDS ORDERED: ACETAMINOPHEN 500 MG TAB ONE (20:20)
--- NOTE | 2021-01-04 20:29 | RAD REPORT ---
[facility] CLINICAL HISTORY: Shortness breath COMPARISON: November 2020 FINDINGS: Mild right basilar atelectasis is suspected Right hemidiaphragm remains elevated. Left lung appears clear. Heart is normal size
[2021-01-04] MEDS ORDERED: CEFTRIAXONE/SWI 1gm 1 GM/10 ML SYR ONE (20:34)
[2021-01-04] MEDS ORDERED: Levofloxacin500mg IV 500 MG/100 ML BAG IV ONE (20:34)
--- NOTE | 2021-01-04 20:35 | ER ---
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 Temp 99.9F, ca1 HR 112, RR 16, BP 158/86. BGL 143. Coronavirus screen: Client denies travel out of the [place] in the last 14 days. cough unrelated to allergies, fever, Client presents with at least one sign or symptom that may indicate coronavirus-19. Standard/surgical mask placed on the client. Provider contacted for isolation considerations. Ebola Screen: Patient negative for fever greater than or equal to 101.5 degrees Fahrenheit, and additional compatible Ebola Virus Disease symptoms Patient denies exposure to infectious person. Patient denies travel to an Ebola-affected area in the 21 days before illness onset. No symptoms or risks identified at this time. Initial Sepsis Screen: Does the patient meet any 2 criteria? RR > 20 per min. HR > 90 bpm. Yes Does the patient have a suspected source of infection? Yes: Productive cough/pneumonia. Risk Assessment: Do you want to hurt yourself or someone else? Patient reports no desire to harm self or others. Onset of symptoms was January 04, 2021. 19:05 Method Of Arrival: EMS: [facility] ca1 19:05 Acuity: NINI 2 ca1 Historical: - Allergies: 19:08 No Known Allergies; ca1 - Home Meds: 20:32 donepezil 10 mg Oral tab 1 tab once daily [Active]; famotidine 20 mg Oral tab 1 tab lp1 once daily [Active]; levothyroxine 112 mcg tab 1 tab once daily [Active]; pantoprazole 40 mg Oral TbEC 1 tab 2 times per day [Active]; sertraline 25 mg Oral tab 1 tab once daily [Active]; trazodone 50 mg Oral tab 2 tabs daily [Active]; - PMHx: 19:08 Alzheimers; Dementia; Hypertension; Thyroid problem; ca1 - PSHx: 19:08 Back Surgeries; ca1 - Immunization history:: Adult Immunizations up to date. - Social history:: Smoking status: Patient denies any tobacco usage or history of. Screenin:23 Abuse screen: Denies threats or abuse. Denies injuries from another. Nutritional lp1 screening: No deficits noted. Tuberculosis screening: No symptoms or risk factors identified. Fall Risk Total Conley Fall Scale indicates High Risk Score (45 or more points). Fall prevention measures have been instituted. Side Rails Up X 2 Placed Close to Nursing Station Frequent Obs/Assessments Occuring Family Present and informed to notify staff if the need to leave the bedside As available patient and family educated on Fall Prevention Program and Strategies. Assessment: 19:30 General: Appears in no apparent distress. Behavior is quiet. Pain: Unable to use pain lp1 scale. FLACC scale score is 0 out of 10. Neuro: Level of Consciousness is awake, obeys commands, confused, Oriented to person, place. Cardiovascular: Patient's skin is warm and dry. Respiratory: Airway is patent Respiratory effort is even, shallow, Respiratory pattern is regular, Breath sounds are clear bilaterally. Breath sounds are diminished in right posterior lower lobe. GI: Abdomen is round non-distended, PEG tube in place, clamped. Site clean. Bowel sounds present X 4 quads. : Parent/caregiver report the patient having odorous urine. EENT: No signs and/or symptoms were reported regarding the EENT system. Derm: Skin is fragile, is thin, Skin is dry, Skin is normal. Musculoskeletal: No signs and/or symptoms reported regarding the musculoskeletal system. 20:12 Reassessment: Provider at bedside to discuss plan of care with patient and family lp1 member at bedside, aware of plan for admission. 21:30 Reassessment: Patient appears in no apparent distress at this time. Patient resting, lp1 eyes closed, respirations even. 22:50 Reassessment: Brief changed, odorous urine noted. lp1 Vital Signs: 19:05 BP 142 / 76; Pulse 116; Resp 29; Temp 99.3(O); Pulse Ox 94% on R/A; ca1 19:13 Weight 56.7 kg (R); lp1 19:30 BP 130 / 85; Pulse 112; Resp 26; Pulse Ox 95% on R/A; lp1 19:51 Temp 101.9(R); lp1 20:00 BP 126 / 61; Pulse 107; Resp 23; Pulse Ox 94% on R/A; lp1 20:25 BP 145 / 80; Pulse 103; Resp 21; Pulse Ox 94% on R/A; lp1 22:42 BP 131 / 68; Pulse 93; Resp 20; Pulse Ox 94% on R/A; lp1 22:58 Temp 100.1(R); lp1 ED Course: 19:05 Patient arrived in ED. ca1 19:07 Omer Trujillo PA is PHCP. jr8 19:07 Eder Miller MD is Attending Physician. jr8 19:07 Triage completed. ca1 19:08 Arm band placed on right wrist. ca1 19:12 Kelsea Velazquez, ABDULKADIR is Primary Nurse. lp1 19:19 Inserted saline lock: 22 gauge in left wrist, using aseptic technique. Blood collected. ds4 19:30 Patient has correct armband on for positive identification. Placed in gown. Bed in low lp1 position. Call light in reach. Side rails up X2. cruise counselor on. Pulse ox on. NIBP on. 19:45 Straight cath inserted, using sterile technique, 16 Fr. Specimen obtained. lp1 20:22 Chest Single View XRAY In Process Unspecified. EDMS 20:34 Ramy Ruiz MD is Hospitalizing Provider. jr8 22:37 No provider procedures requiring assistance completed. Patient admitted, IV remains in lp1 place. Administered Medications: 20:00 Drug: Tylenol 15 mg/kg {Note: 1000mg given per CECILIA Castro.} Route: Feeding Tube; lp1 20:00 Drug: NS 0.9% 1000 ml Route: IV; Rate: 1000 ml; Site: left forearm; lp1 21:19 Follow up: IV Status: Completed infusion; IV Intake: 1000ml lp1 20:15 Drug: Rocephin (cefTRIAXone) 1 grams Route: IV; Rate: calculated rate; Site: left lp1 forearm; 21:00 Follow up: IV Status: Completed infusion; IV Intake: 10ml lp1 20:17 Drug: LevaQUIN (levofloxacin) 500 mg Volume: 100 ml; Route: IVPB; Infused Over: 60 lp1 mins; Site: right hand; 21:19 Follow up: IV Status: Completed infusion; IV Intake: 100ml lp1 Intake: 21:00 IV: 10ml; Total: 10ml. lp1 21:19 IV: 1000ml; Total: 1010ml. lp1 21:19 IV: 100ml; Total: 1110ml. lp1 Outcome: 20:34 Decision to Hospitalize by Provider. jrTami 22:37 Condition: stable lp1 22:37 Instructed on the need for admit. 22:47 Admitted to Tele via stretcher, room 402, with chart, Report called to ABDULKADIR Daniel lp1 23:02 Patient left the ED. lp1 Signatures: Dispatcher [employer] EDKelsea Batres, RN RN lp1 Omer Trujillo PA PA jr8 Rocky Crandall ds4 Yael Hernandez RN RN ca1
--- NOTE | 2021-01-04 20:35 | EDPHYS ---
Physician Documentation [facility] Name: Kenisha Tiwari Age: 75 yrs Sex: Female : 1945 Arrival Date: 01/04/2021 Time: 19:05 Bed 2 Private MD: ED Physician Eder Miller HPI: 01/04 20:04 This 75 yrs old Female presents to ER via EMS with complaints of Fever. jr8 20:04 The patient reports fever, with an emergency department temperature of 101.9 degrees jr8 Fahrenheit. Onset: The symptoms/episode began/occurred acutely, today. Modifying factors: there are no obvious modifying factors. Associated signs and symptoms: Pertinent positives: cough. Severity of symptoms: At their worst the symptoms were moderate in the emergency department the symptoms are unchanged. It is unknown whether or not the patient has had similar symptoms in the past. It is unknown whether or not the patient has recently seen a physician. Historical: - Allergies: 19:08 No Known Allergies; ca1 - Home Meds: 20:32 donepezil 10 mg Oral tab 1 tab once daily [Active]; famotidine 20 mg Oral tab 1 tab lp1 once daily [Active]; levothyroxine 112 mcg tab 1 tab once daily [Active]; pantoprazole 40 mg Oral TbEC 1 tab 2 times per day [Active]; sertraline 25 mg Oral tab 1 tab once daily [Active]; trazodone 50 mg Oral tab 2 tabs daily [Active]; - PMHx: 19:08 Alzheimers; Dementia; Hypertension; Thyroid problem; ca1 - PSHx: 19:08 Back Surgeries; ca1 - Immunization history:: Adult Immunizations up to date. - Social history:: Smoking status: Patient denies any tobacco usage or history of. ROS: 20:04 Unable to obtain ROS due to baseline dementia. jr8 Exam: 20:04 ENT: Nares patent. No nasal discharge, no septal abnormalities noted. Tympanic jr8 membranes are normal and external auditory canals are clear. Oropharynx with no redness, swelling, or masses, exudates, or evidence of obstruction, uvula midline. Mucous membranes moist. Skin: Warm, dry with normal turgor. Normal color with no rashes, no lesions, and no evidence of cellulitis. MS/ Extremity: Pulses equal, no cyanosis. Neurovascular intact. Full, normal range of motion. 20:04 Constitutional: The patient appears alert, awake, frail. 20:04 Cardiovascular: Rate: tachycardic, Rhythm: regular, Pulses: Pulses are 2+ in bilateral radial, brachial, femoral, popliteal, posterior tibial and and dorsalis pedis arteries.. Heart sounds: normal, normal S1and S2, Edema: 1+ edema to level of left midcalf, left ankle, left foot, left toes, right midcalf, right ankle, right foot and right toes. 20:04 Respiratory: the patient does not display signs of respiratory distress, Respirations: tachypnea, that is mild, Breath sounds: bronchial sounds, that are mild, are heard in the left posterior upper lobe and right posterior middle lobe. 20:04 Abdomen/GI: Inspection: Gastrostomy tube in place, Bowel sounds: active, all quadrants, Palpation: abdomen is soft and non-tender, in all quadrants. 20:04 Neuro: Orientation: to person, Mentation: able to follow commands, slow to respond, Motor: moves all fours, Sensation: no obvious gross deficits, seizure activity, is not displayed by the patient, Abnormal movements: there are no abnormal movements. Vital Signs: 19:05 BP 142 / 76; Pulse 116; Resp 29; Temp 99.3(O); Pulse Ox 94% on R/A; ca1 19:13 Weight 56.7 kg (R); lp1 19:30 BP 130 / 85; Pulse 112; Resp 26; Pulse Ox 95% on R/A; lp1 19:51 Temp 101.9(R); lp1 20:00 BP 126 / 61; Pulse 107; Resp 23; Pulse Ox 94% on R/A; lp1 20:25 BP 145 / 80; Pulse 103; Resp 21; Pulse Ox 94% on R/A; lp1 22:42 BP 131 / 68; Pulse 93; Resp 20; Pulse Ox 94% on R/A; lp1 22:58 Temp 100.1(R); lp1 MDM: 19:07 Patient medically screened. jr8 20:04 Data reviewed: vital signs, nurses notes, lab test result(s), EKG, radiologic studies, jr8 plain films. Data interpreted: Pulse oximetry: on room air is 94 %. Interpretation: normal. Counseling: I had a detailed discussion with the patient and/or guardian regarding: the historical points, exam findings, and any diagnostic results supporting the discharge/admit diagnosis, lab results, radiology results, the need for further work-up and treatment in the hospital. 01/04 19:09 Order name: Urine Culture [facility] 01/04 19:09 Order name: Basic Metabolic Panel [facility] 01/04 19:09 Order name: Blood Culture Adult (2) [facility] 01/04 19:09 Order name: CBC with Diff [facility] 01/04 19:09 Order name: CPK; Complete Time: 20:03 [facility] 01/04 19:09 Order name: Lactate; Complete Time: 20:00 [facility] 01/04 19:09 Order name: LFT's; Complete Time: 20:03 [facility] 01/04 19:09 Order name: Lipase; Complete Time: 20:03 [facility] 01/04 19:09 Order name: Procalcitonin; Complete Time: 20:35 [facility] 01/04 19:09 Order name: Protime (+inr); Complete Time: 19:56 [facility] 01/04 19:09 Order name: Ptt, Activated; Complete Time: 19:56 [facility] 01/04 19:09 Order name: Troponin (emerg Dept Use Only); Complete Time: 20:03 [facility] 01/04 19:09 Order name: Urine Microscopic Only; Complete Time: 20:35 [facility] 01/04 19:09 Order name: Urine Culture [facility] 01/04 19:09 Order name: Cath; Complete Time: 19:54 [facility] 01/04 19:09 Order name: Chest Single View XRAY; Complete Time: 20:35 [facility] 01/04 19:09 Order name: Accucheck; Complete Time: 19:54 [facility] 01/04 19:09 Order name: Cardiac monitoring; Complete Time: 19:20 [facility] 01/04 19:09 Order name: EKG - Nurse/Tech; Complete Time: 19:20 [facility] 01/04 19:09 Order name: IV Saline Lock - Large Bore; Complete Time: 19:20 [facility] 01/04 19:09 Order name: Basic Metabolic Panel; Complete Time: 20:03 [facility] 01/04 19:09 Order name: Blood Culture [facility] 01/04 19:09 Order name: CBC with Automated Diff; Complete Time: 19:56 [facility] 01/04 19:54 Order name: Urine Dipstick-Ancillary; Complete Time: 19:56 [facility] 01/04 20:28 Order name: SARS-COV-2 RT PCR; Complete Time: 20:35 [facility] 01/04 19:09 Order name: Labs collected and sent; Complete Time: 19:20 [facility] 01/04 19:09 Order name: O2 Per Protocol; Complete Time: 19:20 [facility] 01/04 19:09 Order name: O2 Sat Monitoring; Complete Time: 19:21 [facility] 01/04 19:09 Order name: Urine Dipstick-Ancillary (obtain specimen); Complete Time: 19:54 jr8 Administered Medications: 20:00 Drug: Tylenol 15 mg/kg {Note: 1000mg given per PA. Matthew} Route: Feeding Tube; lp1 20:00 Drug: NS 0.9% 1000 ml Route: IV; Rate: 1000 ml; Site: left forearm; lp1 21:19 Follow up: IV Status: Completed infusion; IV Intake: 1000ml lp1 20:15 Drug: Rocephin (cefTRIAXone) 1 grams Route: IV; Rate: calculated rate; Site: left lp1 forearm; 21:00 Follow up: IV Status: Completed infusion; IV Intake: 10ml lp1 20:17 Drug: LevaQUIN (levofloxacin) 500 mg Volume: 100 ml; Route: IVPB; Infused Over: 60 lp1 mins; Site: right hand; 21:19 Follow up: IV Status: Completed infusion; IV Intake: 100ml lp1 Disposition: 01/05 06:18 Co-signature as Attending Physician, Eder Miller [facility] Disposition: 01/04/21 20:34 Hospitalization ordered by Ramy Ruiz for Inpatient Admission. Preliminary diagnosis are Severe sepsis, Acute cystitis. - Bed requested for Telemetry/MedSurg (Inpatient). - Status is Inpatient Admission. lp1 - Condition is Stable. - Problem is new. - Symptoms have improved. Signatures: Dispatcher [employer] [facility] Kelsea Velazquez RN RN 1 Omer Trujillo PA PA jr8 Attema, Chris, SVP [employer]-C SVP [employer]OPMENT-Cla1 Janeth Rubalcava RN RN Yael Hernandez RN RN ca1 Holmes, Maurice, MD MD [facility] Corrections: (The following items were deleted from the chart) 01/04 19:42 19:10 CORONAVIRUS+MR.LAB.BRZ ordered. EDMS EDMS 22: 20:34 Hospitalization Ordered by Ramy Ruiz MD for Inpatient Admission. Preliminary cg diagnosis is Severe sepsis; Acute cystitis. Bed requested for Telemetry/MedSurg (Inpatient). Status is Inpatient Admission. Condition is Stable. Problem is new. Symptoms have improved. jr8 23:02 22:29 01/04/2021 20:34 Hospitalization Ordered by Ramy Ruiz MD for Inpatient lp1 Admission. Preliminary diagnosis is Severe sepsis; Acute cystitis. Bed requested for Telemetry/MedSurg (Inpatient). Status is Inpatient Admission. Condition is Stable. Problem is new. Symptoms have improved. cg
[2021-01-04] MEDS ORDERED: ONDANSETRON 4 MG/2 ML VIAL IV PRN (23:22)
--- NOTE | 2021-01-05 00:06 | P.HP ---
Certification for Inpatient Patient admitted to: Inpatient With expected LOS: >2 Midnights Patient will require the following post-hospital care: None Practitioner: I am a practitioner with admitting privileges, knowledge of patient current condition, hospital course, and medical plan of care. Services: Services provided to patient in accordance with Admission requirements found in Title 42 Section 412.3 of the Code of Federal Regulations Patient History Date of Service: 01/05/21 Reason for admission: UTI, sepsis History of Present Illness: 75-year-old female with history of dementia, hypertension, dysphagia status post PEG tube placement, hypothyroidism presents emergency department for fever, increasing altered mental status. Patient evaluated in the emergency department, labs significant for white blood cell count 10.5 with some left shift, sodium 132 chloride 97 creatinine 0.43 glucose 126 lactic acid 1.5, AST 55, ALT 100 alk phos 122. Due to patient's initial vital signs she did meet sepsis criteria, patient without severe sepsis or septic shock. Urinalysis demonstrates nitrite positive 2+ leukoesterase on microscopic 20/50 bacteria. Urine and blood cultures obtained, questionable right lower lobe pneumonia versus atelectasis, patient is with some cough. Patient previously had right- sided pneumonia in the past that was thought to have resolved. Allergies No Known Allergies Allergy (Unverified 11/13/20 15:57) Home Medications: Donepezil HCl 10 mg PO DAILY 11/13/20 Levothyroxine [Synthroid*] 112 mcg PO DAILY 11/13/20 Sertraline [Zoloft*] 25 mg PO DAILY 11/13/20 Trazodone [Desyrel*] 2 tab PO DAILY 11/13/20 Amox/Clavulanate [Augmentin 875-125 Tab*] 875 mg FT BID 3 Days #6 tab 11/22/20 Pantoprazole Granules [Protonix Granules*] 40 mg FT BID 30 Days #60 packet 11/22/20 - Past Medical/Surgical History -: Alzheimer dementia -: Hypertension -: Thyroid disorder -: Dysphagia status post PEG tube insertion -: PEG tube insertion Psychosocial/ Personal History: Patient currently staying with daughter - Family History Family History: Reviewed- Non-Contributory - Social History Smoking Status: Never smoker Alcohol use: No CD- Drugs: No Caffeine use: No Place of Residence: Home Review of Systems 10-point ROS is otherwise unremarkable Physical Examination - Vital Signs Temperature: 100.1 F Blood Pressure: 131/68 Pulse: 93 Respirations: 20 - Physical Exam General: Confused HEENT: Atraumatic, Normocephalic Neck: Supple Respiratory: Diminished (Bilaterally) Cardiovascular: Normal S1 S2 Capillary refill: <2 Seconds Gastrointestinal: Normal bowel sounds, No tenderness, No masses, No rebound Musculoskeletal: No contractures, No erythema, No tenderness Integumentary: No significant lesion, No tenderness/swelling, No erythema Neurological: Normal speech, Normal tone - Studies Laboratory Data (last 24 hrs) 01/04/21 19:17: PT 11.5, INR 1.00, APTT 26.2 01/04/21 19:17: WBC 10.50, Hgb 13.5, Hct 40.3, Plt Count 221 01/04/21 19:17: Sodium 132 L, Potassium 4.1, BUN 9, Creatinine 0.43 L, Glucose 126 H, Total Bilirubin 0.6, AST 55 H, ALT 100 H, Alkaline Phosphatase 122 H, Lipase 162 Assessment and Plan - Plan Assessment Fever, Sepsis secondary to urinary tract infection with pneumonia versus atelectasis in the right lung base Dysphagia status post PEG tube insertion Hypertension, hypothyroidism, dementia Plan Fever, Sepsis secondary to urinary tract infection with pneumonia versus atelectasis in the right lung base: Sepsis without severe sepsis or septic shock at this time. Blood pressure stable, lactic acid normal. Urine is dirty, questionable right-sided pneumonia. Continue with Levaquin, Rocephin, blood and urine cultures obtained. DVT prophylaxis with Lovenox 40 mg subcutaneous once daily. LFTs also mildly elevated, will obtain ultrasound right upper quadrant to evaluate gallbladder/liver. Continue with IV fluids. Dysphagia status post PEG tube insertion: Strict NPO, tube feeds. Dressings/site looks good. Hypertension, hypothyroidism, dementia: Continue home medications, stable. Daughter reports the discharge patient should be able to return home without any difficulty. Discharge Plan: Home Plan to discharge in: Greater than 2 days - Advance Directives Does patient have a Living Will: No Does patient have a Durable POA for Healthcare: No - Code Status/Comfort Care Code Status Assessed: Yes (Full code) Critical Care: No Time Spent Managing Pts Care (In Minutes): 55
--- NOTE | 2021-01-05 00:07 | P.INFCA ---
Sepsis Focused Assessment - Focused Assessment Complete? Sepsis Focused Assessment Completed?: Yes - Sepsis Screen Result Severe Sepsis: Negative Septic Shock: Negative - Evaluation Current stage of sepsis: Ruled out Reason for ruling out sepsis: Lactate normal, VSS. - Vital Signs Reviewed: Yes Temperature: 100.1 F Heart rate: 93 Blood Pressure: 131/68 Respiratory Rate: 20
[2021-01-05] MEDS: NA CHLORIDE 0.9% 1,000 ML IV SCH ×3 (00:15→19:57)
[2021-01-05] MEDS: ACETAMINOPHEN 500 MG TAB FT PRN ×3 (01:08→19:58)
[2021-01-05 01:17] VITALS: BMI 25.6
[2021-01-05 04:58] LABS: Absolute Lymphocytes (CBC) 1.2 K/uL (0.7-4.9); Basophils % 0.2 % (0-1.3); Hematocrit 35.9 % (36.0-45.0); Lymphocytes % 15.6 % (15.3-44.8); MPV 9.1 fL (7.6-11.3)
[2021-01-05 05:26] LABS: ALT/SGPT 79 U/L (12-78); AST/SGOT 39 U/L (15-37); Albumin 2.7 g/dL (3.4-5.0); Alkaline Phosphatase 96 U/L (45-117); BUN Blood Urea Nitrogen 7 mg/dL (7-18); Bicarbonate 26 mmol/L (21-32); Bilirubin Total 0.6 mg/dL (0.2-1.0); Glucose Level 106 mg/dL (74-106); Magnesium 2.1 mg/dL (1.8-2.4); Sodium Level 135 mmol/L (136-145)
[2021-01-05] MEDS: ENOXAPARIN 40 MG/0.4 ML SQ SCH (08:10)
[2021-01-05] MEDS ORDERED: CEFTRIAXONE 1 GM/NS 50 ML 1 GM/50 ML BAG IV SCH (09:00)
[2021-01-05] MEDS: JEVITY 1.5 CAL LIQUID 1,000 ML BOT FT SCH ×2 (11:53→19:58)
--- NOTE | 2021-01-05 13:47 | P.PN ---
Subjective Date of Service: 01/05/21 Chief Complaint: UTI, sepsis Subjective: Improving (feels slightly better, reports abd pain - states new over few weeks. Grand-daugther at bedside, reports some thick yellow-brown drainage around PEG tube.) Review of Systems 10-point ROS is otherwise unremarkable Physical Examination - Vital Signs Temperature: 97.7 F Blood Pressure: 167/76 Pulse: 76 Respirations: 17 Pulse Ox (%): 93 - Studies Laboratory Data (last 24 hrs) 01/04/21 19:17: PT 11.5, INR 1.00, APTT 26.2 01/04/21 19:17: WBC 10.50, Hgb 13.5, Hct 40.3, Plt Count 221 01/04/21 19:17: Sodium 132 L, Potassium 4.1, BUN 9, Creatinine 0.43 L, Glucose 126 H, Total Bilirubin 0.6, AST 55 H, ALT 100 H, Alkaline Phosphatase 122 H, Lipase 162 Assessment & Plan Physician Review Additional Text: Physical Exam General: Confused HEENT: Atraumatic, Normocephalic Neck: Supple Respiratory: Diminished (Bilaterally) Cardiovascular: Normal S1 S2 Capillary refill: <2 Seconds Gastrointestinal: Normal bowel sounds, No tenderness, No masses, No rebound Musculoskeletal: No contractures, No erythema, No tenderness Integumentary: No significant lesion, No tenderness/swelling, No erythema Neurological: Normal speech, Normal tone Problem List Sepsis secondary to urinary tract infection Possible pneumonia versus atelectasis in the right lung base Dysphasia s/p PEG Tube Hypertension Hypothyroidism Dementia -continue IV Abx -cultures sent, urine grossly positive for UTI, f/u cultures -PEG tube site appears without erythema, no induration, dressing with minimal light brown discharge, with mild abd discomfort on palpation in general area as well -will obtain CT Abd/pelvis for further evaluation -granddaughter reports patient has had a "weird cough" lately, "unable to cough up something in her chest" -PT consulted VTE: lovenox Code: full Dispo: anticipate dc back home, likely in 48hrs, awaiting improvement and c ultures Time Spent Managing Pts Care (In Minutes): 35
--- NOTE | 2021-01-05 17:00 | RAD REPORT ---
EXAM DESCRIPTION: CT - Abdomen Pelvis W Contrast - 01/05/2021 3:41 pm CLINICAL HISTORY: periumbilical abd pain, drainage around PEG COMPARISON: Abdomen Pelvis W Contrast dated 02/13/2020 TECHNIQUE: Biphasic, helical CT imaging of the abdomen and pelvis was performed following 100 ml non -ionic IV contrast. No oral contrast administered. All CT scans are performed using dose optimization technique as appropriate and may include automated exposure control or mA/KV adjustment according to patient size. FINDINGS: Posterior gutter atelectasis present on the right. Acute infiltrate component is not suspe cted. There is trace amount of pleural fluid. No cardiomegaly or pericardial effusion. Mild diffuse fatty infiltration pattern of the liver noted. No portal vein abnormality. Spleen and pa ncreas show no suspicious findings. Gallbladder and biliary tree are also without suspicious finding. Symmetric renal function is seen with no hydronephrosis or suspicious renal mass. No pyelonephritis o r acute parenchymal process. Urinary bladder is contracted limiting accurate assessment of the bladde r [place]. Cystitis cannot be excluded. No bladder calculi. Atrophic uterus is present. No suspicion fo r an ovarian based process. No adrenal abnormalities. No gastric dilatation or gastric wall thickening. PEG tube is in place in the distal body of the stom ach. Tube is in the midline. No air or abnormal fluid collection along the course of the PEG tube fro m stomach to skin. No small bowel dilatation. From cecum through sigmoid colon no mass or worrisome colon process seen. 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 Byron endicitis is not suspected. A large amount of stool dilates the rectum to 8 cm. No free air, free fluid or acute inflammatory stranding. No mass or bulky lymphadenopathy. Fat extend s into bilateral inguinal hernias, minimal in size Advanced disc and bone degenerative changes are present. Fusion hardware is present in the mid and lo wer lumbar spine. IMPRESSION: PEG tube is in placed in the distal body of the stomach, midline abdomen. There is a sma ll amount of soft tissue attenuation along the course of the tube but no air, abnormal fluid collecti on or other worrisome finding identifiable. Large stool volume dilates the rectum to 8 cm. Degenerative and postsurgical changes are present in the scoliotic spine.
[2021-01-05] MEDS ORDERED: BISACODYL 10 MG RECTAL SUPP PR ONE (17:04)
--- NOTE | 2021-01-05 18:06 | RAD REPORT ---
EXAM DESCRIPTION: US - Abdomen Exam Limited - 01/05/2021 5:30 pm CLINICAL HISTORY: Elev LFT, fever COMPARISON: Abdomen Pelvis W Contrast dated 01/05/2021 FINDINGS: No gallstones, sludge or other abnormalities within the gallbladder lumen. There is no wal l thickening or pericholecystic fluid. No common duct stone or biliary tree dilatation identified. IMPRESSION: Normal gallbladder and biliary tree ultrasound.
[2021-01-05] MEDS: CEFTRIAXONE/SWI 1gm 1 GM/10 ML SYR IVP SCH (19:57)
[2021-01-05] MEDS: Levofloxacin500mg IV 500 MG/100 ML BAG IV SCH (19:57)
[2021-01-05] MEDS: DONEPEZIL HCL 5 MG TAB PO SCH (19:58)
[2021-01-06] MEDS: MELATONIN 5 MG TABLET PO PRN (00:22)
[2021-01-06 04:08] LABS: Absolute Lymphocytes (CBC) 1.2 K/uL (0.7-4.9); Basophils % 0.7 % (0-1.3); Hematocrit 31.4 % (36.0-45.0); Lymphocytes % 27.6 % (15.3-44.8); MPV 9.2 fL (7.6-11.3)
[2021-01-06 04:25] LABS: ALT/SGPT 68 U/L (12-78); AST/SGOT 36 U/L (15-37); Albumin 2.4 g/dL (3.4-5.0); Alkaline Phosphatase 83 U/L (45-117); BUN Blood Urea Nitrogen 6 mg/dL (7-18); Bicarbonate 27 mmol/L (21-32); Bilirubin Total 0.5 mg/dL (0.2-1.0); Glucose Level 74 mg/dL (74-106); Potassium 3.5 mmol/L (3.5-5.1); Protein, Total 5.7 g/dL (6.4-8.2); Sodium Level 140 mmol/L (136-145)
[2021-01-06] MEDS ORDERED: POTASSIUM 25 MEQ EFFERV TAB PO ONE (04:39)
[2021-01-06] MEDS: LEVOTHYROXINE SOD 0.112 MG TAB PO SCH (05:20)
[2021-01-06] MEDS: NA CHLORIDE 0.9% 1,000 ML IV SCH (05:21)
[2021-01-06] MEDS: SERTRALINE HCL 50 MG TAB PO SCH (08:46)
[2021-01-06] MEDS: ENOXAPARIN 40 MG/0.4 ML SQ SCH (08:49)
[2021-01-06] MEDS: JEVITY 1.5 CAL LIQUID 1,000 ML BOT FT SCH ×3 (08:49→20:32)
[2021-01-06] MEDS: ACETAMINOPHEN 500 MG TAB FT PRN ×2 (08:54→14:41)
[2021-01-06] MEDS ORDERED: TRAZODONE 50 MG TABLET PO SCH (09:00)
[2021-01-06] MEDS ORDERED: HOME MED 1 EA UNK (Donepezil Hcl [Donepezil Hcl] 10 MG Tablet) PO SCH (09:00)
--- NOTE | 2021-01-06 10:26 | RAD REPORT ---
EXAM DESCRIPTION: [facility] Single View01/06/2021 6:09 am CLINICAL HISTORY: Shortness breath COMPARISON: January 05, 2021 FINDINGS: Right hemidiaphragm remains elevated. Right basilar opacity appears mostly resolved. Heart is normal size
--- NOTE | 2021-01-06 13:40 | P.PN ---
Subjective Date of Service: 01/06/21 Chief Complaint: UTI, sepsis Subjective: No new changes (reports feeling about the same, still with abdominal discomfort, no nausea, +BM yesterday after suppository. on 2L NC) Review of Systems 10-point ROS is otherwise unremarkable Physical Examination - Vital Signs Temperature: 97.0 F Blood Pressure: 136/60 Pulse: 74 Respirations: 18 Pulse Ox (%): 95 - Studies Microbiology Data (last 24 hrs): 01/04/21 19:52 Catheterized Urine [place] Count - Final >100,000 CFU/ML. 01/04/21 19:52 Catheterized Urine - Final Escherichia Coli Assessment & Plan Physician Review Additional Text: Physical Exam General: awake, alert, NAD HEENT: Atraumatic, Normocephalic Neck: Supple Respiratory: Diminished (Bilaterally) Cardiovascular: Normal S1 S2 Capillary refill: <2 Seconds Gastrointestinal: soft, mild tenderness around PEG, nondistended Musculoskeletal: No contractures, No erythema, No tenderness Integumentary: No significant lesion, No tenderness/swelling, No erythema Neurological: Normal speech, Normal tone Problem List Sepsis secondary to urinary tract infection Possible pneumonia versus atelectasis in the right lung base Dysphasia s/p PEG Tube Hypertension Hypothyroidism Dementia -continue IV Abx -cultures sent, urine grossly positive for UTI, f/u cultures -PEG tube site appears without erythema, no induration, dressing with minimal light brown discharge, with mild abd discomfort on palpation in general area as well -CT abd/pelvis without signs of infection/swelling, able to see lung bases as well -no pneumonia -granddaughter reports patient has had a "weird cough" lately, "unable to cough up something in her chest" -repeat CXR, pt needing O2 -PT consulted VTE: lovenox Code: full Dispo: anticipate dc back home in next 24-48hrs, awaiting improvement and cultures Time Spent Managing Pts Care (In Minutes): 35
[2021-01-06] MEDS: CEFTRIAXONE/SWI 1gm 1 GM/10 ML SYR IVP SCH (20:30)
[2021-01-06] MEDS: Levofloxacin500mg IV 500 MG/100 ML BAG IV SCH (20:31)
[2021-01-06] MEDS: TRAZODONE 50 MG TABLET PO SCH (20:31)
[2021-01-06] MEDS: DONEPEZIL HCL 5 MG TAB PO SCH (20:31)
[2021-01-07 03:50] LABS: Absolute Lymphocytes (CBC) 1.6 K/uL (0.7-4.9); Basophils % 0.7 % (0-1.3); Hematocrit 35.3 % (36.0-45.0); Lymphocytes % 35.4 % (15.3-44.8); MPV 9.2 fL (7.6-11.3); RBC Red Blood Cell Count 3.79 M/uL (3.86-4.86)
[2021-01-07 04:08] LABS: ALT/SGPT 67 U/L (12-78); AST/SGOT 36 U/L (15-37); Albumin 2.5 g/dL (3.4-5.0); Alkaline Phosphatase 87 U/L (45-117); BUN Blood Urea Nitrogen 7 mg/dL (7-18); Bicarbonate 29 mmol/L (21-32); Bilirubin Total 0.4 mg/dL (0.2-1.0); Glucose Level 68 mg/dL (74-106); Magnesium 2.2 mg/dL (1.8-2.4); Potassium 4.1 mmol/L (3.5-5.1); Protein, Total 5.8 g/dL (6.4-8.2); Sodium Level 141 mmol/L (136-145)
[2021-01-07] MEDS: LEVOTHYROXINE SOD 0.112 MG TAB PO SCH (06:17)
[2021-01-07] MEDS: ENOXAPARIN 40 MG/0.4 ML SQ SCH (07:23)
[2021-01-07] MEDS: JEVITY 1.2 CAL LIQUID 1,000 ML BOT FT SCH ×5 (07:24→21:00)
[2021-01-07] MEDS: SERTRALINE HCL 50 MG TAB PO SCH (07:24)
--- NOTE | 2021-01-07 14:18 | P.PN ---
Subjective Date of Service: 01/07/21 Chief Complaint: UTI, sepsis Patient appeared comfortable. She is not able to give any subjective complain due to dementia. She is maintained on 2 L oxygen by nasal canula. Physical Examination - Vital Signs Temperature: 97.9 F Blood Pressure: 160/81 Pulse: 78 Respirations: 24 Pulse Ox (%): 95 - Physical Exam General: Confused, Other (Awake) HEENT: Mucous membr. moist/pink Neck: JVD not distended Respiratory: Clear to auscultation bilaterally, Diminished Cardiovascular: Regular rate/rhythm, Normal S1 S2 Gastrointestinal: Normal bowel sounds, Soft and benign, Non-distended, No tenderness Musculoskeletal: No swelling, No erythema Integumentary: No rashes Neurological: Other (No focal motor deficit) Assessment And Plan Physician Review Additional Text: Problem List Sepsis secondary to urinary tract infection Possible pneumonia versus atelectasis in the right lung base Dysphasia s/p PEG Tube Hypertension Hypothyroidism Dementia -urine culture is growing pansensitive E. coli -continue IV Rocephin -PEG tube site appears without erythema, no induration, dressing with minimal light brown discharge, with mild abd discomfort on palpation in general area as well -CT abd/pelvis without signs of infection/swelling, able to see lung bases as well -no pneumonia -I suspect hypoxia is secondary hypoventilation. -repeat CXR unremarkable -Pt is still needing O2 -continue PT. -patient declining SNF placement. -will discuss disposition with family VTE: neenanox Code: full
[2021-01-07] MEDS: CEFTRIAXONE/SWI 1gm 1 GM/10 ML SYR IVP SCH (20:00)
[2021-01-07] MEDS: Levofloxacin500mg IV 500 MG/100 ML BAG IV SCH (20:00)
[2021-01-07] MEDS: TRAZODONE 50 MG TABLET PO SCH (21:00)
[2021-01-07] MEDS: DONEPEZIL HCL 5 MG TAB PO SCH (21:00)
[2021-01-08] MEDS: MELATONIN 5 MG TABLET PO PRN (00:28)
[2021-01-08] MEDS: LEVOTHYROXINE SOD 0.112 MG TAB PO SCH (05:34)
[2021-01-08] MEDS: JEVITY 1.2 CAL LIQUID 1,000 ML BOT FT SCH ×5 (08:00→21:10)
[2021-01-08] MEDS: SERTRALINE HCL 50 MG TAB PO SCH (08:17)
[2021-01-08] MEDS: ENOXAPARIN 40 MG/0.4 ML SQ SCH (08:18)
[2021-01-08] MEDS: ACETAMINOPHEN 500 MG TAB FT PRN (11:22)
--- NOTE | 2021-01-08 12:08 | EKG ---
Test Date: 2021-01-04 Test Time: 19:15:38 [employer]: YANE MEASUREMENT RESULTS: Intervals: Rate: 112 CO: 146 QRSD: 72 QT: 334 QTc: 455 Whitney: P: 48 CO: 146 QRS: -58 T: 21 INTERPRETIVE STATEMENTS: Sinus tachycardia Left axis deviation Inferior infarct, age undetermined Anterolateral infarct, age undetermined Abnormal ECG Compared to ECG 11/13/2020 12:24:30 Sinus rhythm no longer present Myocardial infarct finding still present Electronically Signed On 01-08-21 11:55:24 CDT by Mika Pepe
--- NOTE | 2021-01-08 12:47 | RAD REPORT ---
EXAM DESCRIPTION: CT - Chest Angio - 01/08/2021 12:34 pm CLINICAL HISTORY: R O PEchest pain, shortness of breath, possible pulmonary embolism COMPARISON: Chest Single View dated 01/06/2021 TECHNIQUE: Dynamically enhanced 3 mm thick images of the chest were obtained during administration o f approximately 150mL Isovue 370 IV contrast. Coronal and oblique MIP reconstruction images were gene rated and reviewed. Exam utilizes a protocol to evaluate the pulmonary arterial tree. All CT scans are performed using dose optimization technique as appropriate and may include automated exposure control or mA/KV adjustment according to patient size. FINDINGS: No pulmonary emboli are identified. The aorta as imaged shows no acute or suspicious finding. No pericardial thickening or effusion. Hear t size is normal. Respiratory motion degradation accentuates the interstitial pattern. No peripheral mass or consolidat ions seen. There is partial atelectasis of the right lower lobe in the posterior and medial aspect of the gutter. Patient has chronic right hemidiaphragm elevation. No pleural effusion or pleural thicke suleiman. No pneumothorax. No mediastinal or hilar suspicious masses. No chest wall masses or abnormal axillary lymphadenopathy. IMPRESSION: No pulmonary emboli identified. Posterior gutter atelectasis on the right. Pneumonia is not suspected. Respiratory motion degradation is present which could potentially mask minimal edema or infiltrate.
[2021-01-08] MEDS ORDERED: FUROSEMIDE 40 MG/4 ML VIAL IV ONE (13:15)
--- NOTE | 2021-01-08 19:51 | P.PN ---
Subjective Date of Service: 01/08/21 Chief Complaint: UTI, sepsis Patient appeared comfortable. She is not able to give any subjective complain due to dementia. She desaturates on room air. Physical Examination - Vital Signs Temperature: 97.2 F Blood Pressure: 133/74 Pulse: 71 Respirations: 18 Pulse Ox (%): 96 - Physical Exam General: Alert, In no apparent distress, Other (Awake) HEENT: Mucous membr. moist/pink Neck: JVD not distended Respiratory: Clear to auscultation bilaterally, Diminished, Other (Reduce breathing excursions) Cardiovascular: No edema, Regular rate/rhythm, Normal S1 S2 Gastrointestinal: Soft and benign, Non-distended, No tenderness Musculoskeletal: No swelling Integumentary: No rashes Assessment And Plan Physician Review Additional Text: Problem List Sepsis secondary to urinary tract infection Possible pneumonia versus atelectasis in the right lung base Dysphasia s/p PEG Tube Hypertension Hypothyroidism Dementia -urine culture is growing pansensitive E. coli -patient transition to oral antibiotic-Augmentin. -PEG tube site appears without erythema, no induration, dressing with minimal light brown discharge, with mild abd discomfort on palpation in general area as well -CT abd/pelvis without signs of infection/swelling, able to see lung bases as well -no pneumonia. -CT chest demonstrates atelectasis, no infiltrate or PE. -I suspect hypoxia is secondary hypoventilation and atelectasis -incentive spirometry -weaned off oxygen as tolerated -continue PT. -patient declining SNF placement. VTE: lovenox Code: full
[2021-01-08] MEDS: TRAZODONE 50 MG TABLET PO SCH (21:10)
[2021-01-08] MEDS: DONEPEZIL HCL 5 MG TAB PO SCH (21:10)
[2021-01-08] MEDS: AMOX/K CLAV 875 MG TAB PO SCH (21:10)
[2021-01-09 05:46] LABS: Absolute Lymphocytes (CBC) 1.7 K/uL (0.7-4.9); Basophils % 0.6 % (0-1.3); Hematocrit 39.4 % (36.0-45.0); MPV 8.4 fL (7.6-11.3); RBC Red Blood Cell Count 4.28 M/uL (3.86-4.86)
[2021-01-09 06:06] LABS: BUN Blood Urea Nitrogen 10 mg/dL (7-18); Bicarbonate 30 mmol/L (21-32); Glucose Level 84 mg/dL (74-106); Potassium 4.1 mmol/L (3.5-5.1); Sodium Level 136 mmol/L (136-145)
[2021-01-09] MEDS: LEVOTHYROXINE SOD 0.112 MG TAB PO SCH (06:28)
[2021-01-09] MEDS: SERTRALINE HCL 50 MG TAB PO SCH (07:13)
[2021-01-09] MEDS: JEVITY 1.2 CAL LIQUID 1,000 ML BOT FT SCH ×5 (07:14→21:13)
[2021-01-09] MEDS: ENOXAPARIN 40 MG/0.4 ML SQ SCH (07:14)
[2021-01-09] MEDS: AMOX/K CLAV 875 MG TAB PO SCH ×2 (07:14→21:12)
--- NOTE | 2021-01-09 10:32 | P.DS ---
Admission Date: 01/04/21 Discharge Date: 01/10/21 Disposition: ROUTINE DISCHARGE Discharge Condition: FAIR Reason for Admission: UTI, sepsis - Problems (1) Acute respiratory failure with hypoxia Status: Acute (2) Atelectasis Status: Acute (3) UTI (urinary tract infection) Status: Acute (4) Sepsis Status: Acute (5) Oropharyngeal dysphagia Status: Acute Brief History of Present Illness: 75-year-old female with history of dementia, hypertension, dysphagia status post PEG tube placement, hypothyroidism presented to the emergency department with a complaint of fever, and altered mental status. Patient vital signs she did meet sepsis criteria. Urinalysis suggested UTI. Chest x-ray demonstrated questionable right lower lobe pneumonia versus atelectasis. Patient was admitted for further management. Hospital Course: Patient admitted to the medical floor and started on broad-spectrum antibiotics. Urine culture grew pansensitive E. coli. Antibiotics transitioned to oral Augmentin. Patient was hypoxic and was requiring 2 L oxygen by nasal cannula maintain SaO2 above 90%. Chest x-ray and CTA thorax demonstrated atelectasis, infiltrate unlikely. Patient with hypoventilation. She had cough which has improved. Vitals are stable. Sepsis resolved. Patient seen by PT, skilled rehab recommended the patient declined and wishes to go home. Patient eventually weaned off oxygen. She tolerated room air with oxygen saturation above 90%. She is discharged with home health. Vital Signs/Physical Exam: Temp Pulse Resp BP Pulse Ox 97.4 F 75 16 142/74 H 94 01/09/21 08:00 01/09/21 08:00 01/09/21 08:00 01/09/21 08:00 01/09/21 08:00 General: Alert, In no apparent distress, Other HEENT: Mucous membr. moist/pink Neck: JVD not distended Respiratory: Clear to auscultation bilaterally, Diminished Cardiovascular: No edema, Regular rate/rhythm, Normal S1 S2 Gastrointestinal: Normal bowel sounds, Soft and benign, Non-distended, No tenderness, Other (PEG tube in place.) Musculoskeletal: No swelling Integumentary: No rashes Laboratory Data at Discharge: WBC 6.20 K/uL (4.3-10.9) D 01/09/21 05:23 Hgb 13.5 g/dL (12.0-15.0) 01/09/21 05:23 Hct 39.4 % (36.0-45.0) 01/09/21 05:23 Plt Count 253 K/uL (152-406) D 01/09/21 05:23 PT 11.5 SECONDS (9.5-12.5) 01/04/21 19:17 INR 1.00 01/04/21 19:17 APTT 26.2 SECONDS (24.3-36.9) 01/04/21 19:17 Sodium 136 mmol/L (136-145) 01/09/21 05:23 Potassium 4.1 mmol/L (3.5-5.1) 01/09/21 05:23 BUN 10 mg/dL (7-18) 01/09/21 05:23 Creatinine 0.43 mg/dL (0.55-1.3) L 01/09/21 05:23 Glucose 84 mg/dL (74-106) 01/09/21 05:23 Magnesium 2.2 mg/dL (1.8-2.4) 01/07/21 03:14 Total Bilirubin 0.4 mg/dL (0.2-1.0) 01/07/21 03:14 AST 36 U/L (15-37) 01/07/21 03:14 ALT 67 U/L (12-78) 01/07/21 03:14 Alkaline Phosphatase 87 U/L (45-117) 01/07/21 03:14 Lipase 162 U/L (73-393) 01/04/21 19:17 Home Medications: Donepezil HCl 10 mg PO DAILY 11/13/20 Levothyroxine [Synthroid*] 0.5 tab PO DAILY 11/13/20 Sertraline [Zoloft*] 25 mg PO DAILY 11/13/20 Trazodone [Desyrel*] 2 tab PO DAILY 11/13/20 Omeprazole 20 mg PO DAILY 01/05/21 Amox/Clavulanate [Augmentin 875-125 Tab*] 875 mg PO BID #10 tab 01/09/21 Jevity 1.2 Jame Liquid 240 ml FT 5XD #40 bot 01/10/21 New Medications: Amox/Clavulanate [Augmentin 875-125 Tab*] 875 mg PO BID #10 tab Jevity 1.2 Jame Liquid 240 ml FT 5XD #40 bot Physician Discharge Instructions: PROBLEM: UTI, Acute respiratory failure with hypoxia GOAL: Clear understanding of disease process E-scripts sent to [facility] in [place]. INSTRUCTIONS: - Follow up with your primary care provider in 1 week. - Finish all antibiotics as prescribed. - Return to the ER if your symptoms worsen. - Call the 4th floor at if you have any questions regarding your medications or hospital stay. Diet: Jevity 1.2 jame via feeding tube 5 times a day Activity: Fall precautions IMMUNIZATION Influenza Vaccine Indicated: Influenza Vaccine Given: Date Given: Pneumonia Vaccine Indicated: No Pneumonia Vaccine Given: Date Given: Diet: Jevity Activity: Fall precautions Followup: Mart Mckeon MD [UNKNOWN] - 1 Week (Follow up in office in 1 week. Call to schedule an appointment.) Time spent managing pt's care (in minutes): 33
--- NOTE | 2021-01-09 13:00 | P.PN ---
Subjective Date of Service: 01/09/21 Chief Complaint: UTI, sepsis Patient appear comfortable. She is not able to give any subjective complain due to dementia. She desaturates on room air. Not Dyspneic. Physical Examination - Vital Signs Temperature: 97.2 F Blood Pressure: 132/78 Pulse: 73 Respirations: 17 Pulse Ox (%): 93 - Physical Exam General: Alert, In no apparent distress, Other (Awake) HEENT: Mucous membr. moist/pink Neck: JVD not distended Respiratory: Diminished, Other (Decreased breathing excursions) Cardiovascular: No edema, Normal pulses, Regular rate/rhythm, Normal S1 S2 Gastrointestinal: Normal bowel sounds, Soft and benign, Non-distended, Other (PEG tube in place) Musculoskeletal: No swelling, No tenderness Integumentary: No rashes Neurological: Other (No focal motor deficit.) Assessment And Plan - Current Problems (Diagnosis) (1) Acute respiratory failure with hypoxia Current Visit: Yes Status: Acute (2) Atelectasis Current Visit: Yes Status: Acute (3) UTI (urinary tract infection) Current Visit: Yes Status: Acute (4) Sepsis Current Visit: Yes Status: Acute (5) Oropharyngeal dysphagia Current Visit: No Status: Acute Physician Review Additional Text: Problem List Sepsis secondary to urinary tract infection Possible pneumonia versus atelectasis in the right lung base Dysphasia s/p PEG Tube Hypertension Hypothyroidism Dementia -urine culture: pansensitive E. coli -patient transitioned to oral antibiotic-Augmentin. -CT abd/pelvis without signs of infection/swelling. -CT chest demonstrates atelectasis, no infiltrate or PE. -I suspect hypoxia is secondary hypoventilation and atelectasis -incentive spirometry -weaned off oxygen as tolerated -continue PT. -patient declining SNF placement. -disposition to home with home health. VTE: lovenox Code: full
[2021-01-09 14:20] LABS: Arterial Blood Carboxyhemoglob 1.2 % (0-1.5); Blood Gas Oxyhemoglobin 92.9 % (94-97); Blood O2 Saturation 94.8 % (92-98.5)
[2021-01-09] MEDS: DONEPEZIL HCL 5 MG TAB PO SCH (21:13)
[2021-01-09] MEDS: TRAZODONE 50 MG TABLET PO SCH (21:13)
[2021-01-10] MEDS: LEVOTHYROXINE SOD 0.112 MG TAB PO SCH (05:55)
[2021-01-10] MEDS: SERTRALINE HCL 50 MG TAB PO SCH (07:14)
[2021-01-10] MEDS: ENOXAPARIN 40 MG/0.4 ML SQ SCH (07:15)
[2021-01-10] MEDS: JEVITY 1.2 CAL LIQUID 1,000 ML BOT FT SCH ×2 (07:15→12:05)
[2021-01-10] MEDS: AMOX/K CLAV 875 MG TAB PO SCH (07:15)
[2021-01-10 08:26] VITALS: O2SAT 95
[2021-01-10 12:50] VITALS: BP 128/82; TEMP 96.8
== END 2021-01-10 14:05 | disposition home health service (06) | DRG 871 ==
LOC: ER 19:01 → ERHOLD 21:18 → 4TH 22:42
PROVIDERS: ADMIT Hospitalist; ATTEND Hospitalist
DX: A41.9 Sepsis, unspecified organism (principal); J96.01 Acute respiratory failure with hypoxia; N39.0 Urinary tract infection, site not specified; J98.11 Atelectasis; B96.20 Unspecified Escherichia coli [E. coli] as the cause of diseases classified elsewhere; E03.9 Hypothyroidism, unspecified; R13.12 Dysphagia, oropharyngeal phase; I10 Essential (primary) hypertension; F03.90 Unspecified dementia, unspecified severity, without behavioral disturbance, psychotic disturbance, mood disturbance, and anxiety; Z20.822 Contact with and (suspected) exposure to COVID-19; Z93.1 Gastrostomy status
CPT/HCPCS: 36415; 51702; 71045; 71275; 74177; 76705; 80048; 80053; 80076; 81003; 81015; 82550; 82805; 83605; 83690; 83735; 84145; 84439; 84443; 84484; 85025; 85610; 85730; 87040; 87077; 87086; 87088; 87186; 93005; 94010; 97110; 97116; 97161; 97530; 99285; J0696; J1650; J1940; J7030; Q9967; U0003